=== PATIENT | female | born 1985 | race Caucasian/White ===

== ENCOUNTER 2024-12-27 01:08 | Inpatient (IN) | payer OTHER, SELFPAY ==
[2024-12-27 01:24] VITALS: BP 136/88; PULSE 110; RESP 19; TEMP 36.6; O2SAT 96
--- NOTE | 2024-12-27 01:39 | ED_ITS ---
HPI - Psych General Chief Complaint: Psychiatric Symptoms Stated Complaint: SI Time Seen by Provider: 12/27/24 01:10 Source: patient Mode of arrival: ambulatory Limitations: no limitations History of Present Illness ED Provider: Randa Phoenix NP HPI Narrative: Patient is a 39-year-old female with past medical history of PTSD, anxiety, depression, ADHD, ADD, polysubstance use disorder with 11 month sobriety on methadone following with [facility] in [place] reported dosage of 35 mg last dose today who presents emergency department for evaluation coming from a TSS program. Evidently she has been sitting out in the waiting room for approximately 7 hours has been approached by security a few times she had stated that she was waiting on arrived. Ultimately when they last checked in with her she decided it was time to check in as a patient. She states it was hard for her to ?take the first step?. She admits that she has been having suicidal ideations with a plan but does not indulge what this pain includes. Denies having homicidal ideations. She states that she would like to get into a dual diagnosis program, however she is adamant that she has not used any recreational drugs or alcohol. She offers no physical complaints at this time. Related Data Home Medications ?Medication ?Instructions ?Recorded ?Confirmed acetaminophen 500 mg tablet 1,000 mg PO Q6H PRN Pain 12/27/24 12/27/24 (Acetaminophen Extra Strength) benztropine 0.5 mg tablet 0.5 mg PO BID 12/27/24 12/27/24 clonidine HCl 0.1 mg tablet 0.1 mg PO TID 12/27/24 12/27/24 dextroamphetamine-amphetamine 10 10 mg PO DAILY 12/27/24 12/27/24 mg tablet (Adderall) dextroamphetamine-amphetamine ER 10 mg PO DAILY 12/27/24 12/27/24 10 mg 24hr capsule,extend release (Adderall XR) gabapentin 600 mg tablet 600 mg PO TID 12/27/24 12/27/24 hydroxyzine pamoate 50 mg capsule 50 mg PO TID PRN Anxiety 12/27/24 12/27/24 lamotrigine 150 mg tablet 150 mg PO DAILY 12/27/24 12/27/24 methadone 10 mg/mL oral 135 mg PO DAILY 12/27/24 12/27/24 concentrate (Methadone Intensol) nicotine 21 mg/24 hr daily 21 mg topical DAILY 12/27/24 12/27/24 transdermal patch polyethylene glycol 3350 17 17 g PO DAILY PRN Constipation 12/27/24 12/27/24 gram/dose oral powder prazosin 2 mg capsule 2 mg PO BEDTIME 12/27/24 12/27/24 quetiapine 150 mg tablet 150 mg PO BEDTIME 12/27/24 12/27/24 quetiapine 25 mg tablet 25 mg PO BID PRN Agitation 12/27/24 12/27/24 trazodone 100 mg tablet 100 mg PO BEDTIME PRN Insomnia 12/27/24 12/27/24 venlafaxine 37.5 mg 112.5 mg PO DAILY 12/27/24 12/27/24 tablet,extended release 24 hr albuterol sulfate 90 mcg/actuation 2 puff inhalation QID 12/28/24 12/28/24 aerosol inhaler (Ventolin HFA) ketoconazole 2 % shampoo 1 appl topical DAILY PRN Itching 12/28/24 12/28/24 nicotine (polacrilex) 4 mg gum 4 mg buccal Q1H PRN Smoking 12/28/24 12/28/24 Cessation Allergies Allergy/AdvReac Type Severity Reaction Status Date / Time No Known Allergies Allergy Verified 12/27/24 01:26 Review of Systems 2 Review of Systems: Yes all other systems are reviewed and are negative [facility] Past Medical History Attestation statement: The following information was validated with the patient. Social History Social History Patient Tobacco Use Status: Current everyday Tobacco user Currently Displaying Signs/Symptoms of Drug Intoxication Withdrawal: No Advance Directives: No Advance Directives Information Provided: Yes Do you have thoughts of harming others: None Do you have a plan to hurt others: No Plan Nutrition Risks: No Nutritional Risk Patient : No Physical Exam 2 Vital Signs: Vital Signs: Last Vital Signs Temp 98 F 12/28/24 20:39 Pulse 74 12/28/24 20:39 Resp 20 12/28/24 18:40 BP 114/55 L 12/28/24 20:39 Pulse Ox 96 12/28/24 20:39 O2 Del Method Room Air 12/28/24 20:39 BMI result Body Mass Index 30.0 Appearance: Alert.?Oriented to person, place and time. No acute distress.?Normal affect. Eyes: Pupils equal, round and reactive to light.? ENT: Pharynx normal.?? Neck: Normal inspection.? Neck supple.?? CVS: Heart sounds normal. Normal heart rate and rhythm.? Pulses normal.?? Respiratory: No respiratory distress.? Lung sounds clear to auscultation bilaterally?? Abdomen: Soft and non-tender. Normoactive bowel sounds. Skin: Skin warm and dry.? Normal skin color.? Extremities: No lower extremity edema.? Neuro: Moves all extremities spontaneously. Sensation intact bilaterally. CN II- XII intact. No focal neuro deficits. Ambulates with normal steady gait. Course Course Course Narrative: Time: 07:17 Date: 12/27/24 Provider: Andra Ng, DO Patient in physician observation for psychiatric evaluation.? No acute events reported overnight. No current complaints. VS stable.? Pending CARE team evaluation. UA has WBC but no nitrates and neg bacteria will follow culture. Will continue to monitor. Medications Administered Generic Name Dose Route Start Last Admin Trade Name Freq PRN Reason Stop Dose Admin Albuterol Sulfate 2 puff 12/28/24 20:00 12/28/24 20:44 Albuterol Sulfate 90 Mcg 8 Gm Inhaler INHALE Not Given RQID JULIANNE Amphetamine/Dextroamphetamine 10 mg 12/28/24 09:00 12/28/24 08:47 Dextroamphetamine/Amphetamine Xr 10 Mg Cap.Er.24h PO 10 mg DAILY JULIANNE Administration Amphetamine/Dextroamphetamine 10 mg 12/28/24 09:00 12/28/24 08:47 Amphetamine Mixed Salts 10 Mg Tablet PO 10 mg DAILY JULIANNE Administration Benztropine Mesylate 0.5 mg 12/28/24 09:00 12/28/24 20:39 Benztropine Mesylate 0.5 Mg Tablet PO 0.5 mg BID JULIANNE Administration Cephalexin HCl 500 mg 12/28/24 16:30 12/28/24 20:38 Cephalexin 500 Mg Capsule PO 01/02/25 16:29 500 mg TID JULIANNE Administration Clonidine HCl 0.1 mg 12/28/24 09:00 12/28/24 20:41 Clonidine Hcl 0.1 Mg Tablet PO 0.1 mg TID JULIANNE Administration Gabapentin 600 mg 12/28/24 09:00 12/28/24 20:38 Gabapentin 600 Mg Tablet PO 600 mg TID JULIANNE Administration Hydroxyzine HCl 25 mg 12/28/24 16:35 12/28/24 19:08 Hydroxyzine Hcl 25 Mg Tablet PO 25 mg Q6H PRN Administration mild anxiety Lamotrigine 150 mg 12/28/24 09:00 12/28/24 08:47 Lamotrigine 100 Mg Tablet PO 150 mg DAILY JULIANNE Administration Methadone HCl 135 mg 12/27/24 14:45 12/28/24 08:45 Methadone Hcl 20 Mg/2 Ml Oral.Conc PO 135 mg DAILY JULIANNE Administration Nicotine Polacrilex 2 mg 12/28/24 00:39 12/28/24 09:50 Nicotine Polacrilex 2 Mg Gum BUCCAL 2 mg QID PRN Administration Nicotine Cravings Nicotine Polacrilex 4 mg 12/28/24 18:12 12/28/24 19:08 Nicotine Polacrilex 2 Mg Gum BUCCAL 4 mg Q2H PRN Administration Smoking Cessation Olanzapine 5 mg 12/28/24 16:35 12/28/24 19:08 Olanzapine 5 Mg Tablet PO 5 mg TID PRN Administration agitation Prazosin HCl 2 mg 12/28/24 21:00 12/28/24 20:39 Prazosin Hcl 1 Mg Capsule PO 2 mg BEDTIME JULIANNE Administration Quetiapine Fumarate 25 mg 12/27/24 22:01 12/28/24 09:48 Quetiapine Fumarate 25 Mg Tablet PO 25 mg BID PRN Administration Agitation Quetiapine Fumarate 150 mg 12/28/24 21:00 12/28/24 20:38 Quetiapine Fumarate 50 Mg Tablet PO 150 mg BEDTIME JULIANNE Administration Trazodone HCl 100 mg 12/28/24 21:00 12/28/24 20:38 Trazodone Hcl 100 Mg Tablet PO 100 mg BEDTIME JULIANNE Administration Venlafaxine HCl 112.5 mg 12/28/24 09:00 12/28/24 08:48 Venlafaxine Hcl Er 37.5 Mg Cap.Er.24h PO 112.5 mg DAILY JULIANNE Administration Discontinued Medications Generic Name Dose Route Start Last Admin Trade Name Freq PRN Reason Stop Dose Admin Hydroxyzine HCl 50 mg 12/27/24 21:57 12/28/24 09:48 Hydroxyzine Hcl 50 Mg Tablet PO 50 mg TID PRN Administration Anxiety Nicotine 21 mg 12/28/24 09:00 12/28/24 08:48 Nicotine 21 Mg Patch.Td24 TRANSDERMA 21 mg DAILY JULIANNE Administration Medical Decision Making Medical Decision Making [facility] Narrative: Patient is a 39-year-old female with past medical history of PTSD, anxiety, depression, ADHD, ADD, polysubstance use disorder with 11 month sobriety on methadone following with [facility] in [place] reported dosage of 35 mg last dose today who presents emergency department for evaluation reportedly coming from a TSS program that she checked out of as she wants to be placed in a dual diagnosis program although she is quite adamant that she is not using any recreational drugs or alcohol, she is endorsing suicidal ideations with a plan but does not able to with this plan includes. She reports that she has not seen her psychiatric provider and some time as there are maternity in were based on [place], it is not exactly clear but she may have ran out of some of her medications does not know which ones or may not have taken some of her medications recently. This time she offers no physical complaints and her physical exam is benign. She appears mildly anxious and somewhat tearful at the time of evaluation but is calm and cooperative with staff. Plan to obtain serum labs for medical clearance and refer to care team for disposition planning Differential Diagnosis Differential Diagnoses: The differential diagnosis associated with the presentation includes (See narrative above and below for further detail) Admission/Observation Consideration of admission/observation: Escalation of care including admission/observation considered Patient is being observed in the Emergency Department for depression and suicidal ideations Observation time was started at 12/27/2024 at 01:55.?The patient is currently stable and non-toxic appearing. Observation is being initiated in the Emergency Department to allow time to help differentiate if the patient's depression and suicidal ideation is due to Substance Induced Mood Disorder and Anxiety versus Major Depressive Disorder, Bipolar Coco, Bipolar Depression, and Schizophrenia. The patient will receive frequent psychiatric assessments from the provider as well as from nursing staff. The patient will also be monitored for the need of PRN agitation medications such as Haldol, Ativan, and Benadryl. Consult Healthcare Provider Management of the patient was discussed with: Behavioral Health Provider (CARE team) Lab Data [facility] Lab Attestation statement: I reviewed the patient's lab results. CBC reveals no leukocytosis, no significant anemia, no thrombocytopenia. No electrolyte derangement. No TALIA. Ethyl alcohol level nondetectable 12/27/24 03:07 12/27/24 03:07 Labs: Lab Results 12/27/24 12/27/24 Range/Units 03:07 03:10 WBC 4.8 (4.8-10.8) X10*3/uL RBC 4.26 (4.20-5.50) X10*6/uL Hgb 12.4 (12.0-16.0) g/dl Hct 34.9 L (37.0-47.0) % MCV 81.9 (80.0-98.0) fL MCH 29.1 (27.0-33.0) pg MCHC 35.5 H (31.0-35.0) g/dl RDW 12.6 (11.0-16.0) % Plt Count 206 (160-400) X10*3/uL MPV 9.3 L (9.4-12.3) fL Immature Gran % (Auto) 0.2 (0.0-0.4) % Neut % (Auto) 42.1 L (45-73) % Lymph % (Auto) 45.7 H (20-40) % [place] % (Auto) 8.3 (2-11) % Eos % (Auto) 2.9 (0-4) % Baso % (Auto) 0.8 (0-2) % Lymph # (Auto) 2.2 (1.2-4.9) X10*3/uL [place] # (Auto) 0.4 (0.1-1.2) X10*3/uL Eos # (Auto) 0.1 (0.0-0.4) X10*3/uL Baso # (Auto) 0.0 (0.0-0.2) X10*3/uL Abs Immat Gran (auto) 0.01 (0.00-0.03) X10*3/uL Absolute Neuts (auto) 2.0 (2.0-8.3) x10*3/uL Absolute Nucleated RBC 0.000 (0.0-0.012) X10*3/uL Nucleated RBC % (auto) 0.0 (0.0-0.2) /100WBC Sodium 143 (135-145) mmol/L Potassium 4.0 (3.3-5.1) mmol/L Chloride 105 (96-108) mmol/L Carbon Dioxide 28 (22-29) mmol/L Anion Gap 14 (12-20) BUN 16 (9-16) mg/dL Creatinine 0.83 (0.5-1.4) mg/dL Estim Creat Clear Calc 97.0 Estimated GFR > 60 Random Glucose 110 (60-115) mg/dL Calcium 9.0 (8.4-10.2) mg/dL Total Bilirubin 0.4 (0.0-1.0) mg/dL AST 40 H (5-31) U/L ALT 34 H (0-31) U/L Alkaline Phosphatase 75 (39-117) U/L Total Protein 6.8 (6.5-8.0) g/dL Albumin 4.0 (3.5-5.0) g/dL Urine Color Yellow Urine Appearance Clear Urine pH 6.5 (5.0-9.0) Ur Specific [place] 1.020 (1.005-1.025) Urine Protein Negative (Neg-Trace) mg/dL Urine Glucose (UA) Negative (Negative) mg/dL Urine Ketones Negative (Negative) mg/dL Urine Blood Negative (Negative) Urine Nitrite Negative (Negative) Ur Leukocyte Esterase Large (3+) H (Negative) Urine RBC 0-2 (0-2) /HPF Urine WBC >50 H (0-5) /HPF Ur Squamous Epith Cells 6-10 (0-2) /HPF Urine Bacteria None Seen (None Seen) Hyaline Casts 0-2 (0-2) /LPF Urine Test NEGATIVE (NEGATIVE) Urine Opiates Screen Not Detected (Not Detect) Ur Buprenorphine Scrn Not Detected (Not Detect) ng/mL Ur Oxycodone Screen Not Detected (Not Detect) ng/mL Urine Methadone Screen Positive H (Not Detect) ng/mL Urine Fentanyl Screen Not Detected (Not Detect) Ur Barbiturates Screen Not Detected (Not Detect) Ur Phencyclidine Scrn Not Detected (Not Detect) Ur Amphetamines Screen POSITIVE H (Not Detect) U Benzodiazepines Scrn Not Detected (Not Detect) Urine Cocaine Screen Not Detected (Not Detect) U Marijuana (THC) Screen Not Detected (Not Detect) Ethyl Alcohol < 10 mg/dL Chronic Conditions Patient?s care impacted by: Other (See narrative above) Social Determinants Patient?s care significantly limited by Social Determinants of Health including: Inadequate housing and Alcoholism and drug addiction in family Discharge Plan Discharge Clinical Impression: Suicidal ideation Patient Disposition: Admitted As Inpatient Interventions: Admission Worksheet (ED) Last Done: 12/28/24 18:31 Discharge Date/Time: 12/28/24 18:31
--- NOTE | 2024-12-27 01:52 | PC.NURSE ---
This RN & LizettRESOURCE CONSERVATION MANAGER to bedside speaking with patient. Patient arrives from waiting room. Patient was in waiting room for 7 hours, but never checked in. Security & other staff had asked this patient to leave the waiting room, and then reported SI and checked in. States that she is in a TCC program and is '11 months sober'. Denies relapse of any drugs or alcohol. Admits to past use of cocaine, crack, & dope. States that she has run out of all of her medications. Pt is requesting to go into a dual diagnosis program, but that waitlists are 3+ months long. Continues to deny current drug/ETOH use. Reports getting Methadone 135mg daily at [facility]. Large amount of belongings (rolled up mattress, makeup, cell phone, vape, chargers, cigarettes and medications) were with the patient. Belongings were placed into the washer/dryer closed in the pod for storage. Medications given to this RN to review/count.
[2024-12-27 03:12] LABS: MANUAL DIFF FLAG NO
[2024-12-27 03:13] LABS: Basophils Percent Auto 0.8 % (0-2); Eosinophils Absolute Auto 0.1 X10*3/uL (0.0-0.4); Eosinophils Percent Auto 2.9 % (0-4); Hematocrit 34.9 % (37.0-47.0); Hemoglobin 12.4 g/dl (12.0-16.0); Imm Gran Abs Auto 0.01 X10*3/uL (0.00-0.03); Imm Gran Pct Auto 0.2 % (0.0-0.4); Lymphocytes Absolute Auto 2.2 X10*3/uL (1.2-4.9); Lymphocytes Percent Auto 45.7 % (20-40); Mean Corpuscular HGB Conc 35.5 g/dl (31.0-35.0); Mean Corpuscular Hemoglobin 29.1 pg (27.0-33.0); Mean Corpuscular Volume 81.9 fL (80.0-98.0); Mean Platelet Volume 9.3 fL (9.4-12.3); Monocytes Absolute Auto 0.4 X10*3/uL (0.1-1.2); Monocytes Percent Auto 8.3 % (2-11); Neutrophils Percent Auto 42.1 % (45-73); Platelet Count 206 X10*3/uL (160-400); Red Blood Count 4.26 X10*6/uL (4.20-5.50); Red Cell Distribution Width 12.6 % (11.0-16.0); White Blood Count 4.8 X10*3/uL (4.8-10.8)
--- NOTE | 2024-12-27 03:13 | PC.NURSE ---
Belongings moved to [facility] due to large amount of belongings. Area secured by security staff. Controlled medications counted by this RN, inventory completed, and co-signed by Brenda Salinas RN. 2 envelopes to be sent to pharmacy department upon department opening at 7am. Non-controlled medications inventory also completed, however, per policy, non-controlled medications added to patient's belongings in [facility]. All paperwork also reviewed/signed by patient. RN to RN report given to Suzan.
[2024-12-27 03:16] LABS: UPreg QC Valid YES; Urine Pregnancy NEGATIVE (NEGATIVE)
[2024-12-27 03:19] LABS: Appearance Urine Clear; Color Urine Yellow; Glucose Urine UA Negative (Negative); Leukocyte Esterase Urine Large (3+) (Negative); Nitrite Urine Negative (Negative); PH 6.5 (5.0-9.0); UMIC TRIGGER UACC YES; Urine Blood Negative (Negative); Urine Ketones Negative (Negative); Urine Protein Negative (Neg-Trace)
[2024-12-27 03:25] LABS: Bacteria Urine None Seen (None Seen); Hyaline Casts Urine 0-2 /LPF (0-2); RBC Urine 0-2 /HPF (0-2); UACC Culture Trigger YES; WBC Urine >50 /HPF (0-5)
--- NOTE | 2024-12-27 03:32 | PC.NURSE ---
assumed care of pt at 0300. PT appears to be sleeping. Respirations even and unlabored. sitter at bedside. plan of care ongoing
[2024-12-27 03:40] LABS: Alanine Aminotransferase 34 U/L (0-31); Alkaline Phosphatase 75 U/L (39-117); Anion Gap 14 (12-20); Aspartate Amino Transferase 40 U/L (5-31); Bilirubin Total 0.4 mg/dL (0.0-1.0); Blood Urea Nitrogen 16 mg/dL (9-16); Carbon Dioxide 28 mmol/L (22-29); Chloride 105 mmol/L (96-108); Estimated Glomerular Filt Rate > 60; Ethanol < 10 mg/dL; Glucose Random 110 mg/dL (60-115); Sodium 143 mmol/L (135-145); Total Protein 6.8 g/dL (6.5-8.0)
[2024-12-27 04:09] LABS: Amphetamine Screen Urine POSITIVE (Not Detect); Barbiturates, Urine Not Detected (Not Detect); Benzodiazepines Screen Urine Not Detected (Not Detect); Buprenorphine Scr Not Detected (Not Detect); Cannabinoid Screen Urine Not Detected (Not Detect); Cocaine Screen Urine Not Detected (Not Detect); Fentanyl, urine Not Detected (Not Detect); Methadone Screen, Urine Positive (Not Detect); Opiate Screen Urine Not Detected (Not Detect); Oxycodone Screen Urine Not Detected (Not Detect); Phencyclidine Screen Urine Not Detected (Not Detect)
[2024-12-27 06:00] VITALS: RESP 14
--- NOTE | 2024-12-27 06:40 | PC.NURSE ---
patient just got transferred to ED POD from main ED. No behavior and safety issues. Patient has bubble packet however med rec was not completed, will continue to monitor
--- NOTE | 2024-12-27 08:00 | PC.NURSE ---
Assumed care of patient at 0645, patient appears to be sleeping, respiraitons even and unlabored, no apparent distress noted. Continue plan of care for CARE team cedric
--- NOTE | 2024-12-27 14:50 | HE.PHANOTE ---
Methadone verified [facility] 135 mg 12/27/24
[2024-12-27 14:53] VITALS: BP 124/87; PULSE 84; RESP 14; TEMP 36.5; O2SAT 100
[2024-12-27] MEDS: methADONE HCl 20 MG/2 ML ORAL.CONC 135 MG PO (15:12)
--- NOTE | 2024-12-27 15:34 | PC.NURSE ---
This RN spoke with [facility] staff member Amanda who states she will be faxing pts med list over
--- NOTE | 2024-12-27 21:38 | PC.NURSE ---
Addendum entered by Philip Westbrook [facility] 12/27/24 22:35: med rec reviewed Original Note: excepting entry for IR amphetamine salts 10mg daily which i had difficulty entering, med rec appears completed which was reviewed w patient and faxed from [facility] program, reviewed missed entry w [place] Marie
--- NOTE | 2024-12-28 | ECG_ITS ---
Test Reason : CHECK QTC Blood Pressure : */* mmHG Vent. Rate : 84 BPM Atrial Rate : 84 BPM P-R Int : 150 ms QRS Dur : 70 ms QT Int : 396 ms P-R-T Axes : 76 34 50 degrees QTcB Int : 467 ms Normal sinus rhythm Normal ECG No previous ECGs available Referred By: Randa Phoenix Electronically Signed By: PEARL HINKLE
[2024-12-28 00:41] VITALS: BP 111/70; PULSE 82; RESP 16; TEMP 36.6; O2SAT 99
[2024-12-28 00:42] VITALS: BP 111/70
[2024-12-28] MEDS: Prazosin HCL 1 MG CAPSULE 2 MG PO ×2 (00:42→20:39)
[2024-12-28] MEDS: cloNIDine HCL 0.1 MG TABLET PO ×4 (00:42→20:41)
[2024-12-28] MEDS: QUEtiapine Fumarate 50 MG TABLET 150 MG PO ×2 (00:43→20:38)
[2024-12-28] MEDS: traZODone HCL 100 MG TABLET PO ×2 (00:43→20:38)
[2024-12-28] MEDS: Nicotine Polacrilex 2 MG GUM BUCCAL ×2 (00:48→09:50)
[2024-12-28 06:06] VITALS: RESP 16
--- NOTE | 2024-12-28 07:56 | PC.NURSE ---
Assumed care of patient at 0645, patient appears to be in no apparent distress this am, resting in bed, ate breakfast, offering no complaints to this RN. Continue plan of care for IPLOC
[2024-12-28] MEDS: methADONE HCl 20 MG/2 ML ORAL.CONC 135 MG PO (08:45)
[2024-12-28] MEDS: lamoTRIgine 100 MG TABLET 150 MG PO (08:47)
[2024-12-28] MEDS: Amphetamine Mixed Salts 10 MG TABLET PO (08:47)
[2024-12-28] MEDS: Gabapentin 600 MG TABLET PO ×3 (08:47→20:38)
[2024-12-28] MEDS: Dextroamphetamine/Amphetamine XR 10 MG CAP.ER.24H PO (08:47)
[2024-12-28] MEDS: Venlafaxine HCl ER 37.5 MG CAP.ER.24H 112.5 MG PO (08:48)
[2024-12-28] MEDS: Benztropine Mesylate 0.5 MG TABLET PO ×2 (08:48→20:39)
[2024-12-28] MEDS: Nicotine 21 MG PATCH.TD24 TRANSDERMA (08:48)
[2024-12-28] MEDS: hydrOXYzine HCL 50 MG TABLET PO (09:48)
[2024-12-28] MEDS: QUEtiapine Fumarate 25 MG TABLET PO (09:48)
--- NOTE | 2024-12-28 13:41 | PHA.MEDREC ---
Addendum entered by Yuri Ellis RPh 12/28/24 13:52: MED REC CHECKED BY [facility] Original Note: Pharmacy Consult ? Medication Reconciliation Pharmacy has reviewed the medication reconciliation done by nursing. Utilized list from [facility] to confirm med list. Venlafaxine Er 37.5 mg and 75 mg. Confirmed with nurse that patients total daily dose is 112.5 mg daily.
[2024-12-28 14:20] VITALS: BP 100/67; PULSE 78; RESP 16; TEMP 36.4; O2SAT 97
[2024-12-28] MEDS: cephALEXin 500 MG CAPSULE PO ×2 (17:44→20:38)
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
[2024-12-28 18:40] VITALS: BP 132/82; PULSE 102; RESP 20; TEMP 36.7; O2SAT 97
[2024-12-28] MEDS: OLANZapine 5 MG TABLET PO (19:08)
[2024-12-28] MEDS: hydrOXYzine HCL 25 MG TABLET PO (19:08)
[2024-12-28] MEDS: Nicotine Polacrilex 2 MG GUM 4 MG BUCCAL (19:08)
[2024-12-28 19:52] VITALS: BMI 31.5
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
[2024-12-28 20:39] VITALS: BP 114/55; PULSE 74; TEMP 36.6; O2SAT 96
[2024-12-29 08:00] VITALS: BP 94/54; PULSE 68; RESP 17; TEMP 36.8; O2SAT 95
[2024-12-29] MEDS: methADONE HCl 20 MG/2 ML ORAL.CONC 135 MG PO (08:16)
[2024-12-29] MEDS: lamoTRIgine 100 MG TABLET 150 MG PO (08:53)
[2024-12-29] MEDS: Venlafaxine HCl ER 37.5 MG CAP.ER.24H 112.5 MG PO (08:54)
[2024-12-29] MEDS: Gabapentin 600 MG TABLET PO ×3 (08:54→21:04)
[2024-12-29] MEDS: cephALEXin 500 MG CAPSULE PO ×3 (08:55→21:04)
[2024-12-29] MEDS: Dextroamphetamine/Amphetamine XR 10 MG CAP.ER.24H PO (08:55)
[2024-12-29] MEDS: Amphetamine Mixed Salts 10 MG TABLET PO (08:56)
[2024-12-29] MEDS: Nicotine Polacrilex 2 MG GUM 4 MG BUCCAL ×3 (08:56→21:07)
[2024-12-29] MEDS: Benztropine Mesylate 0.5 MG TABLET PO ×2 (08:56→21:04)
[2024-12-29] MEDS: Nicotine 21 MG PATCH.TD24 TRANSDERMA (08:57)
[2024-12-29] MEDS: hydrOXYzine HCL 25 MG TABLET PO (09:01)
[2024-12-29] MEDS: QUEtiapine Fumarate 25 MG TABLET PO ×2 (09:01→17:01)
[2024-12-29 09:03] VITALS: BP 116/71
[2024-12-29] MEDS: Albuterol Sulfate 90 MCG 8 GM INHALER 2 PUFF INHALE ×2 (09:03→15:32)
[2024-12-29] MEDS: cloNIDine HCL 0.1 MG TABLET PO ×3 (09:03→21:04)
[2024-12-29 09:34] LABS: Estimated Average Glucose 108 mg/dL; Hemoglobin A1C 134.0729 umol/L; Hemoglobin A1c % 5.4 % (<6.0); Total Hemoglobin (HGBA1C) 3743.2029 umol/L
[2024-12-29 09:43] LABS: Alanine Aminotransferase 40 U/L (0-31); Albumin Level 4.3 g/dL (3.5-5.0); Alkaline Phosphatase 80 U/L (39-117); Anion Gap 11 (12-20); Aspartate Amino Transferase 39 U/L (5-31); Bilirubin Total 0.4 mg/dL (0.0-1.0); Blood Urea Nitrogen 18 mg/dL (9-16); Calcium 9.5 mg/dL (8.4-10.2); Carbon Dioxide 31 mmol/L (22-29); Chloride 103 mmol/L (96-108); Cholesterol 176 mg/dL (<200); Creatinine Clr Calc Pharmacy 88.7; Estimated Glomerular Filt Rate > 60; Glucose Random 104 mg/dL (60-115); HDL Cholesterol 52 mg/dL (>40); LDL Cholesterol Calculated 98 mg/dL (<100); Potassium 4.2 mmol/L (3.3-5.1); Sodium 141 mmol/L (135-145); Total Protein 7.8 g/dL (6.5-8.0); Triglycerides 130 mg/dL (<150)
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
[2024-12-29 15:32] VITALS: BP 133/71
[2024-12-29] MEDS: HaloperidoL 5 MG TABLET PO ×2 (17:01→21:06)
[2024-12-29 19:49] VITALS: BP 113/54; PULSE 89; RESP 16; TEMP 36.8; O2SAT 99
[2024-12-29] MEDS: QUEtiapine Fumarate 50 MG TABLET 150 MG PO (21:04)
[2024-12-29] MEDS: traZODone HCL 100 MG TABLET PO (21:04)
[2024-12-29] MEDS: Prazosin HCL 1 MG CAPSULE 2 MG PO (21:04)
[2024-12-30] MEDS: methADONE HCl 20 MG/2 ML ORAL.CONC 135 MG PO (07:47)
[2024-12-30 08:00] VITALS: BP 97/65; PULSE 90; RESP 16; TEMP 36.6; O2SAT 98
--- NOTE | 2024-12-30 08:32 | HO.ECTCONS_ITS ---
History of Present Illness Data of Consult Service Date: 12/30/24 Primary Care Provider: Unknown Physician HPI Reason for consult: ECT Risk Stratification Pt is a 39-year-old female with a PMH significant for ADHD, polysubstance use disorder on methadone sober 11 months, PTSD, anxiety, and depression who was admitted to Psychiatric unit for increasing depression with SI with plan to slit her wrists. Hospitalist consult for ECT risk stratification. Pt has been staying at [facility] in [place] and was scheduled to have an ECT information session sometime next week. Pt reports experienced a seizure episode 10-15 years ago while detoxing. No formal seizure disorder diagnosis, and likely secondary to detox seen/medication induced. Pt has undergone surgical procedures in the past without any problems with anesthesia. Denies hx of cerebral hemorrhage or stroke, CAD, space occupying intracranial lesion, or TBI. No known hx of bleeding disorders or and otherwise unstable vascular aneurysm, severe pulmonary conditions. Pt reports has a rescue inhaler that was originally prescribed when she had pneumonia, and since then prescription has been renewed. Currently pt denies any acute medical complaints. No chest pain/pressure, or palpitations. Denies fever, chills, nausea, vomiting, abdominal pain. Denies shortness or breath or difficulty breathing. No headache or acute vision changes. Vitals reviewed, stable and WNL. Labs from yesterday reviewed, overall grossly unremarkable. EKG from yesterday reviewed, showing normal sinus rhythm with QTc 467. Review of Systems 2 Review of Systems: Pt has no acute medical complaints at this time. [facility] Social History Household Members: None Housing: Homeless Do you presently have visiting nurse or other home services: No Patient Tobacco Use Status: Refuse Tobacco use screen Currently Displaying Signs/Symptoms of Drug Intoxication Withdrawal: No Advance Directives: No Advance Directives Information Provided: Yes Do you have thoughts of harming others: None Do you have a plan to hurt others: No Plan Nutrition Risks: No Nutritional Risk Patient : No : No Sexual orientation: Unable to collect Meds Allergies Allergy/AdvReac Type Severity Reaction Status Date / Time No Known Allergies Allergy Verified 12/27/24 01:26 Active Medications: Current Medications Al Hydroxide/Mg Hydroxide (Magnesium Hydrox/Alum Hydrox 30 Ml Oral.Susp) 30 ml PO Q6H PRN PRN Reason: Heartburn/Nausea Albuterol Sulfate (Albuterol Sulfate 90 Mcg 8 Gm Inhaler) 2 puff INHALE RQID [facility] Last Admin: 12/29/24 21:07 Dose: Not Given Amphetamine/Dextroamphetamine (Dextroamphetamine/Amphetamine Xr 10 Mg Cap.Er.24h) 10 mg PO DAILY [facility] Last Admin: 12/29/24 08:55 Dose: 10 mg Amphetamine/Dextroamphetamine (Amphetamine Mixed Salts 10 Mg Tablet) 10 mg PO DAILY [facility] Last Admin: 12/29/24 08:56 Dose: 10 mg Benztropine Mesylate (Benztropine Mesylate 0.5 Mg Tablet) 0.5 mg PO BID [facility] Last Admin: 12/29/24 21:04 Dose: 0.5 mg Cephalexin HCl (Cephalexin 500 Mg Capsule) 500 mg PO TID [facility] Stop: 01/02/25 16:29 Last Admin: 12/29/24 21:04 Dose: 500 mg Clonidine HCl (Clonidine Hcl 0.1 Mg Tablet) 0.1 mg PO TID [facility] Last Admin: 12/29/24 21:04 Dose: 0.1 mg Gabapentin (Gabapentin 600 Mg Tablet) 600 mg PO TID [facility] Last Admin: 12/29/24 21:04 Dose: 600 mg Haloperidol (Haloperidol 5 Mg Tablet) 5 mg PO Q4H PRN PRN Reason: severe anxiety Last Admin: 12/29/24 21:06 Dose: 5 mg Hydroxyzine HCl (Hydroxyzine Hcl 25 Mg Tablet) 25 mg PO Q6H PRN PRN Reason: mild anxiety Last Admin: 12/29/24 09:01 Dose: 25 mg Lamotrigine (Lamotrigine 100 Mg Tablet) 150 mg PO DAILY [facility] Last Admin: 12/29/24 08:53 Dose: 150 mg Magnesium Hydroxide (Milk Of Magnesia 30 Ml Oral.Susp) 30 ml PO DAILY PRN PRN Reason: Constipation Methadone HCl (Methadone Hcl 20 Mg/2 Ml Oral.Conc) 135 mg PO DAILY [facility] Last Admin: 12/30/24 07:47 Dose: 135 mg Nicotine (Nicotine 21 Mg Patch.Td24) 21 mg TRANSDERMA DAILY PRN PRN Reason: smoking cessation Last Admin: 12/29/24 08:57 Dose: 21 mg Nicotine Polacrilex (Nicotine Polacrilex 2 Mg Gum) 2 mg BUCCAL QID PRN PRN Reason: Nicotine Cravings Last Admin: 12/28/24 09:50 Dose: 2 mg Nicotine Polacrilex (Nicotine Polacrilex 2 Mg Gum) 4 mg BUCCAL Q2H PRN PRN Reason: Smoking Cessation Last Admin: 12/29/24 21:07 Dose: 4 mg Polyethylene Glycol (Polyethylene Glycol 3350 17 Gm Powd.Pack) 17 gm PO DAILY PRN PRN Reason: Constipation Prazosin HCl (Prazosin Hcl 1 Mg Capsule) 2 mg PO BEDTIME [facility] Last Admin: 12/29/24 21:04 Dose: 2 mg Quetiapine Fumarate (Quetiapine Fumarate 25 Mg Tablet) 25 mg PO BID PRN PRN Reason: Agitation Last Admin: 12/29/24 17:01 Dose: 25 mg Quetiapine Fumarate (Quetiapine Fumarate 50 Mg Tablet) 150 mg PO BEDTIME [facility] Last Admin: 12/29/24 21:04 Dose: 150 mg Trazodone HCl (Trazodone Hcl 100 Mg Tablet) 100 mg PO BEDTIME [facility] Last Admin: 12/29/24 21:04 Dose: 100 mg Trazodone HCl (Trazodone Hcl 50 Mg Tablet) 50 mg PO BEDTIME MRX1 PRN PRN Reason: Insomnia Venlafaxine HCl (Venlafaxine Hcl Er 37.5 Mg Cap.Er.24h) 112.5 mg PO DAILY [facility] Last Admin: 12/29/24 08:54 Dose: 112.5 mg Home Medications ?Medication ?Instructions ?Recorded ?Confirmed ?Last Taken ?Type acetaminophen 500 mg tablet 1,000 mg PO Q6H PRN Pain 12/27/24 12/27/24 Unknown History (Acetaminophen Extra Strength) benztropine 0.5 mg tablet 0.5 mg PO BID 12/27/24 12/27/24 Unknown History clonidine HCl 0.1 mg tablet 0.1 mg PO TID 12/27/24 12/27/24 Unknown History dextroamphetamine-amphetamine 10 10 mg PO DAILY 12/27/24 12/27/24 Unknown History mg tablet (Adderall) dextroamphetamine-amphetamine ER 10 mg PO DAILY 12/27/24 12/27/24 Unknown History 10 mg 24hr capsule,extend release (Adderall XR) gabapentin 600 mg tablet 600 mg PO TID 12/27/24 12/27/24 Unknown History hydroxyzine pamoate 50 mg capsule 50 mg PO TID PRN Anxiety 12/27/24 12/27/24 Unknown History lamotrigine 150 mg tablet 150 mg PO DAILY 12/27/24 12/27/24 Unknown History methadone 10 mg/mL oral 135 mg PO DAILY 12/27/24 12/27/24 12/26/24 History concentrate (Methadone Intensol) nicotine 21 mg/24 hr daily 21 mg topical DAILY 12/27/24 12/27/24 Unknown History transdermal patch polyethylene glycol 3350 17 17 g PO DAILY PRN Constipation 12/27/24 12/27/24 Unknown History gram/dose oral powder prazosin 2 mg capsule 2 mg PO BEDTIME 12/27/24 12/27/24 Unknown History quetiapine 150 mg tablet 150 mg PO BEDTIME 12/27/24 12/27/24 Unknown History quetiapine 25 mg tablet 25 mg PO BID PRN Agitation 12/27/24 12/27/24 Unknown History trazodone 100 mg tablet 100 mg PO BEDTIME PRN Insomnia 12/27/24 12/27/24 Unknown History venlafaxine 37.5 mg 112.5 mg PO DAILY 12/27/24 12/27/24 Unknown History tablet,extended release 24 hr albuterol sulfate 90 mcg/actuation 2 puff inhalation QID 12/28/24 12/28/24 Unknown History aerosol inhaler (Ventolin HFA) ketoconazole 2 % shampoo 1 appl topical DAILY PRN Itching 12/28/24 12/28/24 Unknown History nicotine (polacrilex) 4 mg gum 4 mg buccal Q1H PRN Smoking 12/28/24 12/28/24 11/11/24 History Cessation Physical Exam 2 Vital Signs and Narrative: Vital Signs: Last Vital Signs Temp 98.3 F 12/29/24 19:49 Pulse 89 12/29/24 19:49 Resp 16 12/29/24 19:49 BP 113/54 L 12/29/24 19:49 Pulse Ox 99 12/29/24 19:49 O2 Del Method Room Air 12/29/24 19:49 BMI result Body Mass Index 31.5 General: AOx3, no acute distress Resp: CTA bilaterally CVS: S1, S2, RRR GI: +BS, NT, no distention Skin: Warm, dry Neuro: Cranial nerves II-XII grossly intact bilaterally. Motor grossly intact bilaterally Extremities: No edema Psych: Calm, cooperative Results Labs 12/27/24 03:07 12/29/24 08:33 Labs: Laboratory Results - last 24 hr 12/29/24 08:33 Anion Gap 11 L Estim Creat Clear Calc 88.7 Estimated GFR > 60 Random Glucose 104 Estimat Average Glucose 108 Hemoglobin A1c % 5.4 Calcium 9.5 Total Bilirubin 0.4 AST 39 H ALT 40 H Alkaline Phosphatase 80 Total Protein 7.8 Albumin 4.3 Triglycerides 130 Cholesterol 176 LDL Cholesterol, Calc 98 HDL Cholesterol 52 TSH 1.60 Assessment and Plan (1) Pre-op evaluation: Status: Acute Plan Pt is a 39-year-old female with a PMH significant for ADHD, polysubstance use disorder on methadone sober 11 months, PTSD, anxiety, and depression who was admitted to [facility] for increasing depression with SI with plan to slit her wrists. Hospitalist consult for ECT risk stratification. ECT risk stratification Patient without previous problems with anesthesia RCRI 0 points, no further cardiac workup or treatment indicated at this time EKG showing QTc WNL, no evidence of ischemic changes Hx of seizure x10-15 years ago while in detox, no formal seizure disorder diagnosis Based on stated PMH, HPI, and physical exam, there are no apparent medical contraindications to the planned procedure Hx of seizure Continue lamotrigine UTI Continue cephalexin Polysubstance use disorder Continue methadone Nicotine dependence Continue NRT Thank you for us to participate in the care of this pt. Will sign off for now. Please re-consult if any acute issue or need arises.
[2024-12-30 08:53] VITALS: BP 97/65
[2024-12-30] MEDS: Dextroamphetamine/Amphetamine XR 10 MG CAP.ER.24H PO (08:53)
[2024-12-30] MEDS: lamoTRIgine 100 MG TABLET 150 MG PO (08:53)
[2024-12-30] MEDS: Amphetamine Mixed Salts 10 MG TABLET PO (08:53)
[2024-12-30] MEDS: cloNIDine HCL 0.1 MG TABLET PO ×3 (08:53→21:05)
[2024-12-30] MEDS: cephALEXin 500 MG CAPSULE PO ×3 (08:53→21:05)
[2024-12-30] MEDS: Gabapentin 600 MG TABLET PO ×3 (08:53→21:06)
[2024-12-30] MEDS: Venlafaxine HCl ER 37.5 MG CAP.ER.24H 112.5 MG PO (08:53)
[2024-12-30] MEDS: Benztropine Mesylate 0.5 MG TABLET PO ×2 (08:54→21:06)
[2024-12-30] MEDS: HaloperidoL 5 MG TABLET PO ×3 (09:05→21:05)
[2024-12-30] MEDS: hydrOXYzine HCL 25 MG TABLET PO ×2 (09:05→21:05)
[2024-12-30] MEDS: Nicotine 21 MG PATCH.TD24 TRANSDERMA (09:05)
[2024-12-30] MEDS: QUEtiapine Fumarate 25 MG TABLET PO (09:05)
[2024-12-30] MEDS: Nicotine Polacrilex 2 MG GUM BUCCAL ×2 (09:05→13:34)
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
[2024-12-30 17:07] VITALS: BP 106/66
[2024-12-30 20:00] VITALS: BP 98/53; PULSE 72; RESP 16; TEMP 36.4; O2SAT 95
[2024-12-30] MEDS: QUEtiapine Fumarate 50 MG TABLET 150 MG PO (21:05)
[2024-12-30] MEDS: Prazosin HCL 1 MG CAPSULE 2 MG PO (21:06)
[2024-12-30] MEDS: traZODone HCL 100 MG TABLET PO (21:06)
[2024-12-31 07:00] VITALS: BMI 32.1
[2024-12-31] MEDS: methADONE HCl 20 MG/2 ML ORAL.CONC 135 MG PO (07:54)
[2024-12-31 08:00] VITALS: BP 101/60; PULSE 98; RESP 16; TEMP 36.7; O2SAT 99
[2024-12-31] MEDS: Nicotine 21 MG PATCH.TD24 TRANSDERMA (09:13)
[2024-12-31] MEDS: Amphetamine Mixed Salts 10 MG TABLET PO (09:13)
[2024-12-31] MEDS: lamoTRIgine 100 MG TABLET 150 MG PO (09:14)
[2024-12-31] MEDS: Gabapentin 600 MG TABLET PO ×3 (09:14→21:05)
[2024-12-31] MEDS: Dextroamphetamine/Amphetamine XR 10 MG CAP.ER.24H PO (09:14)
[2024-12-31] MEDS: cephALEXin 500 MG CAPSULE PO ×3 (09:14→21:04)
[2024-12-31] MEDS: Nicotine Polacrilex 2 MG GUM BUCCAL ×2 (09:14→21:07)
[2024-12-31] MEDS: cloNIDine HCL 0.1 MG TABLET PO ×3 (09:14→21:04)
[2024-12-31] MEDS: Benztropine Mesylate 0.5 MG TABLET PO ×2 (09:14→21:04)
[2024-12-31] MEDS: Venlafaxine HCl ER 37.5 MG CAP.ER.24H 112.5 MG PO (09:17)
[2024-12-31] MEDS: Nicotine Polacrilex 2 MG GUM 4 MG BUCCAL ×2 (09:18→14:05)
--- NOTE | 2024-12-31 09:22 | P.PNPSI_ITS ---
Subjective Subjective Date of Service: 12/31/24 Reason For Visit: psychosis Subjective Notes: Conditional Voluntary Interim History: Reports feeling improved, yet anxiety is evident Anxiety is somewhat decreased this afternoon, pt is seen more in milieu today. Self esteem is low. We discussed how hard she has worked for sobriety. Informed she may return to [facility] and is pleased with this. Denies SI,HI,AH,VH Medication Compliance: Yes Side effects from medications: No Attending Groups: Intermittent Review of Systems Acute medical concerns: No Review of Systems Review of Systems denies Mental Status Exam Mental Status Exam Patient Appearance: Appropriate Patient Orientation: Person, Place, Time and Situation Level of Consciousness: Alert Patient Behavior: Appropriate, Talkative and Good Eye Contact Mood Description: Withdrawn and Anxious Affect Description: Withdrawn and Anxious Patient Cognition Impaired: No Ability to Follow Directions: Good Speech Pattern: Spontaneous Speech Memory Description: Intact Hallucinations: None Delusions: Not Present Thought Process: Rumination Thought Content: positive for Perseveration Depressive Symptoms: Increased Anxiety and Thoughts of /Suicide (denies) Judgement: Good Diagnostics Vital Signs (24Hr): Vital Signs - 24 hr 12/30/24 17:07 12/30/24 20:00 Temperature 97.6 F Pulse Rate 72 Respiratory Rate 16 Blood Pressure 106/66 98/53 L Pulse Oximetry 95 Oxygen Delivery Method Room Air BMI result Body Mass Index 31.5 Labs 12/27/24 03:07 12/29/24 08:33 Labs: Laboratory Results - last 48 hr 12/29/24 08:33 Sodium 141 Potassium 4.2 Chloride 103 Carbon Dioxide 31 H Anion Gap 11 L BUN 18 H Creatinine 0.93 Estim Creat Clear Calc 88.7 Estimated GFR > 60 Random Glucose 104 Estimat Average Glucose 108 Hemoglobin A1c % 5.4 Calcium 9.5 Total Bilirubin 0.4 AST 39 H ALT 40 H Alkaline Phosphatase 80 Total Protein 7.8 Albumin 4.3 Triglycerides 130 Cholesterol 176 LDL Cholesterol, Calc 98 HDL Cholesterol 52 TSH 1.60 Medications Medications Current Medications Al Hydroxide/Mg Hydroxide (Magnesium Hydrox/Alum Hydrox 30 Ml Oral.Susp) 30 ml PO Q6H PRN PRN Reason: Heartburn/Nausea Albuterol Sulfate (Albuterol Sulfate 90 Mcg 8 Gm Inhaler) 2 puff INHALE RQID [facility] Last Admin: 12/30/24 21:07 Dose: Not Given Amphetamine/Dextroamphetamine (Dextroamphetamine/Amphetamine Xr 10 Mg Cap.Er.24h) 10 mg PO DAILY [facility] Last Admin: 12/30/24 08:53 Dose: 10 mg Amphetamine/Dextroamphetamine (Amphetamine Mixed Salts 10 Mg Tablet) 10 mg PO DAILY [facility] Last Admin: 12/30/24 08:53 Dose: 10 mg Benztropine Mesylate (Benztropine Mesylate 0.5 Mg Tablet) 0.5 mg PO BID [facility] Last Admin: 12/30/24 21:06 Dose: 0.5 mg Cephalexin HCl (Cephalexin 500 Mg Capsule) 500 mg PO TID [facility] Stop: 01/02/25 16:29 Last Admin: 12/30/24 21:05 Dose: 500 mg Clonidine HCl (Clonidine Hcl 0.1 Mg Tablet) 0.1 mg PO TID [facility] Last Admin: 12/30/24 21:05 Dose: 0.1 mg Gabapentin (Gabapentin 600 Mg Tablet) 600 mg PO TID [facility] Last Admin: 12/30/24 21:06 Dose: 600 mg Haloperidol (Haloperidol 5 Mg Tablet) 5 mg PO Q4H PRN PRN Reason: severe anxiety Last Admin: 12/30/24 21:05 Dose: 5 mg Hydroxyzine HCl (Hydroxyzine Hcl 25 Mg Tablet) 25 mg PO Q6H PRN PRN Reason: mild anxiety Last Admin: 12/30/24 21:05 Dose: 25 mg Lamotrigine (Lamotrigine 100 Mg Tablet) 150 mg PO DAILY [facility] Last Admin: 12/30/24 08:53 Dose: 150 mg Magnesium Hydroxide (Milk Of Magnesia 30 Ml Oral.Susp) 30 ml PO DAILY PRN PRN Reason: Constipation Methadone HCl (Methadone Hcl 20 Mg/2 Ml Oral.Conc) 135 mg PO DAILY [facility] Last Admin: 12/31/24 07:54 Dose: 135 mg Nicotine (Nicotine 21 Mg Patch.Td24) 21 mg TRANSDERMA DAILY PRN PRN Reason: smoking cessation Last Admin: 12/30/24 09:05 Dose: 21 mg Nicotine Polacrilex (Nicotine Polacrilex 2 Mg Gum) 2 mg BUCCAL QID PRN PRN Reason: Nicotine Cravings Last Admin: 12/30/24 13:34 Dose: 2 mg Nicotine Polacrilex (Nicotine Polacrilex 2 Mg Gum) 4 mg BUCCAL Q2H PRN PRN Reason: Smoking Cessation Last Admin: 06/03/25 21:07 Dose: 4 mg Polyethylene Glycol (Polyethylene Glycol 3350 17 Gm Powd.Pack) 17 gm PO DAILY PRN PRN Reason: Constipation Prazosin HCl (Prazosin Hcl 1 Mg Capsule) 2 mg PO BEDTIME [facility] Last Admin: 12/30/24 21:06 Dose: 2 mg Quetiapine Fumarate (Quetiapine Fumarate 25 Mg Tablet) 25 mg PO BID PRN PRN Reason: Agitation Last Admin: 12/30/24 09:05 Dose: 25 mg Quetiapine Fumarate (Quetiapine Fumarate 50 Mg Tablet) 150 mg PO BEDTIME [facility] Last Admin: 12/30/24 21:05 Dose: 150 mg Trazodone HCl (Trazodone Hcl 100 Mg Tablet) 100 mg PO BEDTIME [facility] Last Admin: 12/30/24 21:06 Dose: 100 mg Trazodone HCl (Trazodone Hcl 50 Mg Tablet) 50 mg PO BEDTIME MRX1 PRN PRN Reason: Insomnia Venlafaxine HCl (Venlafaxine Hcl Er 37.5 Mg Cap.Er.24h) 112.5 mg PO DAILY [facility] Last Admin: 12/30/24 08:53 Dose: 112.5 mg Allergies Allergies Allergy/AdvReac Type Severity Reaction Status Date / Time No Known Allergies Allergy Verified 12/27/24 01:26 Assessment & Plan Assessment & Plan (1) Depression, unspecified: Status: Acute Code(s): F32.A - Depression, unspecified (2) Anxiety disorder, unspecified: Status: Acute Code(s): F41.9 - Anxiety disorder, unspecified (3) Opioid use disorder: Status: Acute Code(s): F11.90 - Opioid use, unspecified, uncomplicated Plan 12/31: Continue current tx. Pt is a 39-year-old female with a PMH significant for ADHD, polysubstance use disorder on methadone sober 11 months, PTSD, anxiety, and depression who was [facility] for increasing depression with SI with plan to slit her wrists. Hospitalist consult for ECT risk stratification. ECT risk stratification Patient without previous problems with anesthesia RCRI 0 points, no further cardiac workup or treatment indicated at this time EKG showing QTc WNL, no evidence of ischemic changes Hx of seizure x10-15 years ago while in detox, no formal seizure disorder diagnosis Based on stated PMH, HPI, and physical exam, there are no apparent medical contraindications to the planned procedure Hx of seizure Continue lamotrigine UTI Continue cephalexin Polysubstance use disorder Continue methadone Nicotine dependence Continue NRT Thank you for us to participate in the care of this pt. Will sign off for now. Please re-consult if any acute issue or need arises. Reason for continued inpatient stay Substantial Risk for: rapid decompensation Time Spent With Patient Time: Total time managing care of this patient today ____ minutes.
[2024-12-31] MEDS: hydrOXYzine HCL 25 MG TABLET PO ×3 (09:25→21:06)
[2024-12-31] MEDS: QUEtiapine Fumarate 25 MG TABLET PO ×2 (09:25→14:05)
[2024-12-31] MEDS: HaloperidoL 5 MG TABLET PO ×3 (09:25→21:13)
[2024-12-31 20:00] VITALS: BP 102/60; PULSE 86; RESP 18; TEMP 37; O2SAT 93
[2024-12-31] MEDS: QUEtiapine Fumarate 50 MG TABLET 150 MG PO (21:05)
[2024-12-31] MEDS: Prazosin HCL 1 MG CAPSULE 2 MG PO (21:05)
[2024-12-31] MEDS: traZODone HCL 100 MG TABLET PO (21:06)
[2025-01-01] VITALS (8 sets, daily range): BP systolic 89–132; BP diastolic 53–78; PULSE 72–100; RESP 16; TEMP 36.4–37.4; O2SAT 94–98
[2025-01-01] MEDS: methADONE HCl 20 MG/2 ML ORAL.CONC 135 MG PO (07:58)
[2025-01-01] MEDS: hydrOXYzine HCL 25 MG TABLET PO ×2 (09:02→15:58)
[2025-01-01] MEDS: cephALEXin 500 MG CAPSULE PO ×3 (09:02→21:00)
[2025-01-01] MEDS: lamoTRIgine 100 MG TABLET 150 MG PO (09:02)
[2025-01-01] MEDS: Dextroamphetamine/Amphetamine XR 10 MG CAP.ER.24H PO (09:02)
[2025-01-01] MEDS: Gabapentin 600 MG TABLET PO ×3 (09:03→21:01)
[2025-01-01] MEDS: Venlafaxine HCl ER 37.5 MG CAP.ER.24H 112.5 MG PO (09:04)
[2025-01-01] MEDS: cloNIDine HCL 0.1 MG TABLET PO ×3 (09:05→20:58)
[2025-01-01] MEDS: QUEtiapine Fumarate 25 MG TABLET PO ×2 (09:05→15:58)
[2025-01-01] MEDS: Amphetamine Mixed Salts 10 MG TABLET PO (09:05)
[2025-01-01] MEDS: HaloperidoL 5 MG TABLET PO ×2 (09:05→15:58)
[2025-01-01] MEDS: Nicotine Polacrilex 2 MG GUM 4 MG BUCCAL ×3 (09:07→21:07)
[2025-01-01] MEDS: Nicotine 21 MG PATCH.TD24 TRANSDERMA (09:07)
[2025-01-01] MEDS: Albuterol Sulfate 90 MCG 8 GM INHALER 2 PUFF INHALE ×2 (09:30→21:23)
[2025-01-01] MEDS: Benztropine Mesylate 0.5 MG TABLET PO ×2 (10:38→20:59)
--- NOTE | 2025-01-01 11:48 | P.PNPSI_ITS ---
Subjective Subjective Date of Service: 01/01/25 Reason For Visit: psychosis Interim History: Continues with anxiety, low self esteem. Tells team she feels damaged, not adequate enough to be cared for. Not attending groups. Encouraged to try. Denies med SE. Continues to feel grateful that she may return to [facility]. Medication Compliance: Yes Side effects from medications: No Attending Groups: No Review of Systems Acute medical concerns: No Review of Systems Review of Systems constipation Mental Status Exam Mental Status Exam Patient Appearance: Appropriate Patient Orientation: Person, Place, Time and Situation Level of Consciousness: Alert Patient Behavior: Appropriate, Talkative and Good Eye Contact Mood Description: Withdrawn and Anxious Affect Description: Withdrawn and Anxious Patient Cognition Impaired: No Ability to Follow Directions: Good Speech Pattern: Spontaneous Speech Memory Description: Intact Hallucinations: None Delusions: Not Present Thought Process: Rumination Thought Content: positive for Perseveration Depressive Symptoms: Increased Anxiety and Thoughts of /Suicide (denies) Judgement: Good Diagnostics Vital Signs (24Hr): Vital Signs - 24 hr 12/31/24 20:00 01/01/25 08:00 01/01/25 09:05 Temperature 98.6 F 97.7 F Pulse Rate 86 72 Respiratory Rate 18 16 Blood Pressure 102/60 95/53 L 128/70 Pulse Oximetry 93 97 Oxygen Delivery Method Room Air BMI result Body Mass Index 32.1 Labs 12/27/24 03:07 12/29/24 08:33 Medications Medications Current Medications Al Hydroxide/Mg Hydroxide (Magnesium Hydrox/Alum Hydrox 30 Ml Oral.Susp) 30 ml PO Q6H PRN PRN Reason: Heartburn/Nausea Albuterol Sulfate (Albuterol Sulfate 90 Mcg 8 Gm Inhaler) 2 puff INHALE RQID [facility] Last Admin: 01/01/25 09:30 Dose: 2 puff Amphetamine/Dextroamphetamine (Dextroamphetamine/Amphetamine Xr 10 Mg Cap.Er.24h) 10 mg PO DAILY [facility] [place] Last Admin: 01/01/25 09:02 Dose: 10 mg Amphetamine/Dextroamphetamine (Amphetamine Mixed Salts 10 Mg Tablet) 10 mg PO DAILY [facility] [place] Last Admin: 01/01/25 09:05 Dose: 10 mg Benztropine Mesylate (Benztropine Mesylate 0.5 Mg Tablet) 0.5 mg PO BID [facility] [place] Last Admin: 01/01/25 10:38 Dose: 0.5 mg Cephalexin HCl (Cephalexin 500 Mg Capsule) 500 mg PO TID [facility] [place] Stop: 01/02/25 16:29 Last Admin: 01/01/25 09:02 Dose: 500 mg Clonidine HCl (Clonidine Hcl 0.1 Mg Tablet) 0.1 mg PO TID [facility] [place] Last Admin: 01/01/25 09:05 Dose: 0.1 mg Gabapentin (Gabapentin 600 Mg Tablet) 600 mg PO TID [facility] [place] Last Admin: 01/01/25 09:03 Dose: 600 mg Haloperidol (Haloperidol 5 Mg Tablet) 5 mg PO Q4H PRN PRN Reason: severe anxiety Last Admin: 01/01/25 09:05 Dose: 5 mg Hydroxyzine HCl (Hydroxyzine Hcl 25 Mg Tablet) 25 mg PO Q6H PRN PRN Reason: mild anxiety Last Admin: 01/01/25 09:02 Dose: 25 mg Lamotrigine (Lamotrigine 100 Mg Tablet) 150 mg PO DAILY [facility] [place] Last Admin: 01/01/25 09:02 Dose: 150 mg Magnesium Hydroxide (Milk Of Magnesia 30 Ml Oral.Susp) 30 ml PO DAILY PRN PRN Reason: Constipation Methadone HCl (Methadone Hcl 20 Mg/2 Ml Oral.Conc) 135 mg PO DAILY [facility] [place] Last Admin: 01/01/25 07:58 Dose: 135 mg Nicotine (Nicotine 21 Mg Patch.Td24) 21 mg TRANSDERMA DAILY PRN PRN Reason: smoking cessation Last Admin: 01/01/25 09:07 Dose: 21 mg Nicotine Polacrilex (Nicotine Polacrilex 2 Mg Gum) 2 mg BUCCAL QID PRN PRN Reason: Nicotine Cravings Last Admin: 12/31/24 21:07 Dose: 2 mg Nicotine Polacrilex (Nicotine Polacrilex 2 Mg Gum) 4 mg BUCCAL Q2H PRN PRN Reason: Smoking Cessation Last Admin: 01/01/25 09:07 Dose: 4 mg Polyethylene Glycol (Polyethylene Glycol 3350 17 Gm Powd.Pack) 17 gm PO DAILY PRN PRN Reason: Constipation Prazosin HCl (Prazosin Hcl 1 Mg Capsule) 2 mg PO BEDTIME [facility] [place] Last Admin: 12/31/24 21:05 Dose: 2 mg Quetiapine Fumarate (Quetiapine Fumarate 25 Mg Tablet) 25 mg PO BID PRN PRN Reason: Agitation Last Admin: 01/01/25 09:05 Dose: 25 mg Quetiapine Fumarate (Quetiapine Fumarate 50 Mg Tablet) 150 mg PO BEDTIME [facility] Last Admin: 12/31/24 21:05 Dose: 150 mg Trazodone HCl (Trazodone Hcl 100 Mg Tablet) 100 mg PO BEDTIME [facility] Last Admin: 12/31/24 21:06 Dose: 100 mg Trazodone HCl (Trazodone Hcl 50 Mg Tablet) 50 mg PO BEDTIME MRX1 PRN PRN Reason: Insomnia Venlafaxine HCl (Venlafaxine Hcl Er 37.5 Mg Cap.Er.24h) 112.5 mg PO DAILY [facility] [place] Last Admin: 01/01/25 09:04 Dose: 112.5 mg Allergies Allergies Allergy/AdvReac Type Severity Reaction Status Date / Time No Known Allergies Allergy Verified 12/27/24 01:26 Assessment & Plan Assessment & Plan (1) Depression, unspecified: Status: Acute Code(s): F32.A - Depression, unspecified (2) Anxiety disorder, unspecified: Status: Acute Code(s): F41.9 - Anxiety disorder, unspecified (3) Opioid use disorder: Status: Acute Code(s): F11.90 - Opioid use, unspecified, uncomplicated Plan 12/31: Continue current tx. 01/01: Increase venlafaxine to 150 mg. Colace, Dulcolax prn Pt is a 39-year-old female with a PMH significant for ADHD, polysubstance use disorder on methadone sober 11 months, PTSD, anxiety, and depression who was [facility] for increasing depression with SI with plan to slit her wrists. Hospitalist consult for ECT risk stratification. ECT risk stratification Patient without previous problems with anesthesia RCRI 0 points, no further cardiac workup or treatment indicated at this time EKG showing QTc WNL, no evidence of ischemic changes Hx of seizure x10-15 years ago while in detox, no formal seizure disorder diagnosis Based on stated PMH, HPI, and physical exam, there are no apparent medical contraindications to the planned procedure Hx of seizure Continue lamotrigine UTI Continue cephalexin Polysubstance use disorder Continue methadone Nicotine dependence Continue NRT Thank you for us to participate in the care of this pt. Will sign off for now. Please re-consult if any acute issue or need arises. Reason for continued inpatient stay Substantial Risk for: rapid decompensation Time Spent With Patient Time: Total time managing care of this patient today ____ minutes.
[2025-01-01] MEDS: Prazosin HCL 1 MG CAPSULE 2 MG PO (20:57)
[2025-01-01] MEDS: traZODone HCL 100 MG TABLET PO (20:59)
[2025-01-01] MEDS: QUEtiapine Fumarate 50 MG TABLET 150 MG PO (21:00)
[2025-01-02] MEDS: methADONE HCl 20 MG/2 ML ORAL.CONC 135 MG PO (07:52)
[2025-01-02 08:00] VITALS: BP 109/67; PULSE 88; RESP 18; TEMP 36.6; O2SAT 97
[2025-01-02] MEDS: Venlafaxine HCl ER 150 MG CAP.ER.24H PO (08:20)
[2025-01-02] MEDS: Amphetamine Mixed Salts 10 MG TABLET PO (08:20)
[2025-01-02] MEDS: lamoTRIgine 100 MG TABLET 150 MG PO (08:20)
[2025-01-02] MEDS: cloNIDine HCL 0.1 MG TABLET PO ×3 (08:20→20:34)
[2025-01-02] MEDS: Benztropine Mesylate 0.5 MG TABLET PO ×2 (08:20→20:34)
[2025-01-02] MEDS: Dextroamphetamine/Amphetamine XR 10 MG CAP.ER.24H PO (08:20)
[2025-01-02] MEDS: Gabapentin 600 MG TABLET PO ×3 (08:21→20:34)
[2025-01-02] MEDS: cephALEXin 500 MG CAPSULE PO ×2 (08:22→14:08)
[2025-01-02] MEDS: Nicotine 21 MG PATCH.TD24 TRANSDERMA (08:23)
[2025-01-02] MEDS: Albuterol Sulfate 90 MCG 8 GM INHALER 2 PUFF INHALE ×2 (08:59→20:35)
[2025-01-02] MEDS: polyethylene glycoL 3350 17 GM POWD.PACK PO (09:00)
[2025-01-02] MEDS: HaloperidoL 5 MG TABLET PO (09:00)
[2025-01-02] MEDS: Docusate Sodium 100 MG CAPSULE PO (09:00)
[2025-01-02] MEDS: Nicotine Polacrilex 2 MG GUM 4 MG BUCCAL (09:03)
[2025-01-02] MEDS: QUEtiapine Fumarate 25 MG TABLET PO (12:02)
[2025-01-02 14:09] VITALS: BP 115/72
[2025-01-02 19:56] VITALS: BP 123/67; PULSE 89; RESP 15; TEMP 36.5; O2SAT 94
[2025-01-02] MEDS: Prazosin HCL 1 MG CAPSULE 2 MG PO (20:33)
[2025-01-02] MEDS: QUEtiapine Fumarate 50 MG TABLET 150 MG PO (20:33)
[2025-01-02] MEDS: traZODone HCL 100 MG TABLET PO (20:34)
[2025-01-02] MEDS: HaloperidoL 1 MG TABLET 4 MG PO (20:42)
--- NOTE | 2025-01-02 20:56 | HO.PSYCHPN ---
Subjective Subjective Date of Service: 01/02/25 Reason For Visit: psychosis Interim History: Patient describes significant anxiety was intermittently tearful. Describes different mood lability periods of depression racing thoughts agitation. States she had recently been on clonazepam up to 4 mg daily. Patient states she feels that Seroquel just increases her weight feels like lamotrigine had not been helpful Medication Compliance: Yes Mental Status Exam Mental Status Exam Patient Appearance: Appropriate Patient Orientation: Person, Place, Time and Situation Level of Consciousness: Alert Patient Behavior: Appropriate, Talkative and Good Eye Contact Behavior Comments: Somewhat labile and tearful Mood Description: Withdrawn, Anxious and Apprehensive Affect Description: Withdrawn and Anxious Patient Cognition Impaired: No Ability to Follow Directions: Good Speech Pattern: Spontaneous Speech Memory Description: Intact Hallucinations: Auditory Delusions: Not Present Thought Process: Rumination Thought Content: positive for Perseveration Depressive Symptoms: Increased Anxiety and Thoughts of /Suicide (denies) Judgement: Fair Diagnostics Vital Signs (24Hr): Vital Signs - 24 hr 01/01/25 20:57 01/01/25 20:58 01/02/25 08:00 Temperature 97.8 F Pulse Rate 88 Respiratory Rate 18 Blood Pressure 107/65 107/65 109/67 Pulse Oximetry 97 Oxygen Delivery Method Room Air 01/02/25 14:09 01/02/25 19:56 Temperature 97.7 F Pulse Rate 89 Respiratory Rate 15 Blood Pressure 115/72 123/67 Pulse Oximetry 94 Oxygen Delivery Method BMI result Body Mass Index 32.1 Labs 12/27/24 03:07 12/29/24 08:33 Medications Medications Current Medications Al Hydroxide/Mg Hydroxide (Magnesium Hydrox/Alum Hydrox 30 Ml Oral.Susp) 30 ml PO Q6H PRN PRN Reason: Heartburn/Nausea Albuterol Sulfate (Albuterol Sulfate 90 Mcg 8 Gm Inhaler) 2 puff INHALE RQID [facility] Last Admin: 01/02/25 20:35 Dose: 2 puff Amphetamine/Dextroamphetamine (Dextroamphetamine/Amphetamine Xr 10 Mg Cap.Er.24h) 10 mg PO DAILY [facility] Last Admin: 01/02/25 08:20 Dose: 10 mg Amphetamine/Dextroamphetamine (Amphetamine Mixed Salts 10 Mg Tablet) 10 mg PO DAILY [facility] Last Admin: 01/02/25 08:20 Dose: 10 mg Benztropine Mesylate (Benztropine Mesylate 0.5 Mg Tablet) 0.5 mg PO BID [facility] Last Admin: 01/02/25 20:34 Dose: 0.5 mg Bisacodyl (Bisacodyl 5 Mg Tablet.Dr) 10 mg PO BEDTIME PRN PRN Reason: Constipation Clonidine HCl (Clonidine Hcl 0.1 Mg Tablet) 0.1 mg PO TID [facility] Last Admin: 01/02/25 20:34 Dose: 0.1 mg Docusate Sodium (Docusate Sodium 100 Mg Capsule) 100 mg PO BID PRN PRN Reason: Constipation Last Admin: 01/02/25 09:00 Dose: 100 mg Gabapentin (Gabapentin 600 Mg Tablet) 600 mg PO TID [facility] Last Admin: 01/02/25 20:34 Dose: 600 mg Haloperidol (Haloperidol 1 Mg Tablet) 4 mg PO Q4H PRN PRN Reason: severe anxiety Last Admin: 01/02/25 20:42 Dose: 4 mg Hydroxyzine HCl (Hydroxyzine Hcl 25 Mg Tablet) 25 mg PO Q6H PRN PRN Reason: mild anxiety Last Admin: 01/01/25 15:58 Dose: 25 mg Lamotrigine (Lamotrigine 100 Mg Tablet) 150 mg PO DAILY [facility] Last Admin: 01/02/25 08:20 Dose: 150 mg Magnesium Hydroxide (Milk Of Magnesia 30 Ml Oral.Susp) 30 ml PO DAILY PRN PRN Reason: Constipation Methadone HCl (Methadone Hcl 20 Mg/2 Ml Oral.Conc) 135 mg PO DAILY [facility] Last Admin: 01/02/25 07:52 Dose: 135 mg Nicotine (Nicotine 21 Mg Patch.Td24) 21 mg TRANSDERMA DAILY PRN PRN Reason: smoking cessation Last Admin: 01/02/25 08:23 Dose: 21 mg Nicotine Polacrilex (Nicotine Polacrilex 2 Mg Gum) 2 mg BUCCAL QID PRN PRN Reason: Nicotine Cravings Last Admin: 12/31/24 21:07 Dose: 2 mg Nicotine Polacrilex (Nicotine Polacrilex 2 Mg Gum) 4 mg BUCCAL Q2H PRN PRN Reason: Smoking Cessation Last Admin: 01/02/25 09:03 Dose: 4 mg Polyethylene Glycol (Polyethylene Glycol 3350 17 Gm Powd.Pack) 17 gm PO DAILY PRN PRN Reason: Constipation Last Admin: 01/02/25 09:00 Dose: 17 gm Prazosin HCl (Prazosin Hcl 1 Mg Capsule) 2 mg PO BEDTIME [facility] Last Admin: 01/02/25 20:33 Dose: 2 mg Quetiapine Fumarate (Quetiapine Fumarate 25 Mg Tablet) 25 mg PO BID PRN PRN Reason: Agitation Last Admin: 01/02/25 12:02 Dose: 25 mg Quetiapine Fumarate (Quetiapine Fumarate 50 Mg Tablet) 150 mg PO BEDTIME [facility] Last Admin: 01/02/25 20:33 Dose: 150 mg Trazodone HCl (Trazodone Hcl 100 Mg Tablet) 100 mg PO BEDTIME [facility] Last Admin: 01/02/25 20:34 Dose: 100 mg Trazodone HCl (Trazodone Hcl 50 Mg Tablet) 50 mg PO BEDTIME MRX1 PRN PRN Reason: Insomnia Venlafaxine HCl (Venlafaxine Hcl Er 150 Mg Cap.Er.24h) 150 mg PO DAILY [facility] Last Admin: 01/02/25 08:20 Dose: 150 mg Allergies Allergies Allergy/AdvReac Type Severity Reaction Status Date / Time No Known Allergies Allergy Verified 12/27/24 01:26 Assessment & Plan Assessment & Plan (1) Depression, unspecified: Status: Acute Code(s): F32.A - Depression, unspecified (2) Anxiety disorder, unspecified: Status: Acute Code(s): F41.9 - Anxiety disorder, unspecified (3) Opioid use disorder: Status: Acute Code(s): F11.90 - Opioid use, unspecified, uncomplicated Plan 12/31: Continue current tx. 01/01: Increase venlafaxine to 150 mg. Colace, Dulcolax prn 01/02/2025 Discussed option to increase Seroquel offered alternatives patient did not want to change medication also increase Lamictal. History of PTSD depression anxiety question of mixed states. Tried discussed option of Vraylar as adjunctive treatment of depression and would be helpful for mixed states. Patient did state she had found clonazepam helpful in the past do not see that was given over the past couple of years Pt is a 39-year-old female with a PMH significant for ADHD, polysubstance use disorder on methadone sober 11 months, PTSD, anxiety, and depression who was [facility] for increasing depression with SI with plan to slit her wrists. Hospitalist consult for ECT risk stratification. ECT risk stratification Patient without previous problems with anesthesia RCRI 0 points, no further cardiac workup or treatment indicated at this time EKG showing QTc WNL, no evidence of ischemic changes Hx of seizure x10-15 years ago while in detox, no formal seizure disorder diagnosis Based on stated PMH, HPI, and physical exam, there are no apparent medical contraindications to the planned procedure Hx of seizure Continue lamotrigine UTI Continue cephalexin Polysubstance use disorder Continue methadone Nicotine dependence Continue NRT Thank you for us to participate in the care of this pt. Will sign off for now. Please re-consult if any acute issue or need arises. Reason for continued inpatient stay Substantial Risk for: harm to self, inability to function and rapid decompensation Time Spent With Patient Time: Total time managing care of this patient today ____ minutes.
[2025-01-02] MEDS: hydrOXYzine HCL 25 MG TABLET PO (21:34)
[2025-01-03] MEDS: methADONE HCl 20 MG/2 ML ORAL.CONC 135 MG PO (07:45)
[2025-01-03 08:00] VITALS: BP 90/59; PULSE 100; RESP 18; TEMP 36.9; O2SAT 97
[2025-01-03] MEDS: Venlafaxine HCl ER 150 MG CAP.ER.24H PO (08:35)
[2025-01-03] MEDS: Benztropine Mesylate 0.5 MG TABLET PO ×2 (08:35→20:16)
[2025-01-03] MEDS: Albuterol Sulfate 90 MCG 8 GM INHALER 2 PUFF INHALE ×2 (08:35→20:16)
[2025-01-03] MEDS: Dextroamphetamine/Amphetamine XR 10 MG CAP.ER.24H PO (08:36)
[2025-01-03] MEDS: polyethylene glycoL 3350 17 GM POWD.PACK PO (08:36)
[2025-01-03] MEDS: Amphetamine Mixed Salts 10 MG TABLET PO (08:36)
[2025-01-03] MEDS: Docusate Sodium 100 MG CAPSULE PO (08:36)
[2025-01-03] MEDS: Gabapentin 600 MG TABLET PO ×3 (08:36→20:16)
[2025-01-03] MEDS: lamoTRIgine 100 MG TABLET 150 MG PO (08:36)
[2025-01-03] MEDS: Nicotine 21 MG PATCH.TD24 TRANSDERMA (08:38)
[2025-01-03] MEDS: HaloperidoL 1 MG TABLET 4 MG PO ×3 (08:42→19:32)
[2025-01-03 08:45] VITALS: BP 112/73
[2025-01-03] MEDS: cloNIDine HCL 0.1 MG TABLET PO ×3 (08:45→20:16)
[2025-01-03] MEDS: Nicotine Polacrilex 2 MG GUM 4 MG BUCCAL (13:31)
[2025-01-03 15:16] VITALS: BP 123/69
[2025-01-03] MEDS: QUEtiapine Fumarate 25 MG TABLET PO (15:16)
[2025-01-03] MEDS: hydrOXYzine HCL 25 MG TABLET PO (19:13)
[2025-01-03 20:00] VITALS: BP 111/70; PULSE 82; RESP 15; TEMP 36.6; O2SAT 97
[2025-01-03] MEDS: Prazosin HCL 1 MG CAPSULE 2 MG PO (20:15)
[2025-01-03] MEDS: QUEtiapine Fumarate 50 MG TABLET 150 MG PO (20:15)
[2025-01-03] MEDS: traZODone HCL 100 MG TABLET PO (20:16)
--- NOTE | 2025-01-03 23:09 | P.PNPSI_ITS ---
Subjective Subjective Date of Service: 01/03/25 Reason For Visit: psychosis Interim History: Continue to be chatty and engaged. FOund on milieu. Shares that she spoke with her uncle who informed her her father has some kind of cancer. Familh in [place], Sleep intact, SI here and there none today. Review of Systems Review of Systems constipation Yes all other systems are reviewed and are negative Mental Status Exam Mental Status Exam Narrative: hospital [facility]. disheveled. cooperative. no PMA/PMR. speech incr amount, nml rate, nml loudness, decr latency. thoughts linear and logical. affect variable, variably intense, mod-labile - from smiling and laughing to tearful. mood just anxious and sad. vaguely endorses SI. denies HI/VH. endorses AH of derogatory commentary. Patient Appearance: Appropriate Patient Orientation: Person, Place, Time and Situation Level of Consciousness: Alert Patient Behavior: Appropriate, Talkative and Good Eye Contact Mood Description: Withdrawn and Anxious Affect Description: Withdrawn and Anxious Patient Cognition Impaired: No Ability to Follow Directions: Good Speech Pattern: Spontaneous Speech Memory Description: Intact Diagnostics Vital Signs (24Hr): Vital Signs - 24 hr 01/03/25 08:00 01/03/25 08:45 01/03/25 15:16 Temperature 98.5 F Pulse Rate 100 Respiratory Rate 18 Blood Pressure 90/59 L 112/73 123/69 Pulse Oximetry 97 Oxygen Delivery Method Room Air 01/03/25 20:00 Temperature 98 F Pulse Rate 82 Respiratory Rate 15 Blood Pressure 111/70 Pulse Oximetry 97 Oxygen Delivery Method BMI result Body Mass Index 32.1 Labs 12/27/24 03:07 12/29/24 08:33 Medications Medications Current Medications Al Hydroxide/Mg Hydroxide (Magnesium Hydrox/Alum Hydrox 30 Ml Oral.Susp) 30 ml PO Q6H PRN PRN Reason: Heartburn/Nausea Albuterol Sulfate (Albuterol Sulfate 90 Mcg 8 Gm Inhaler) 2 puff INHALE RQID [facility] Last Admin: 01/03/25 20:16 Dose: 2 puff Amphetamine/Dextroamphetamine (Dextroamphetamine/Amphetamine Xr 10 Mg Cap.Er.24h) 10 mg PO DAILY [facility] Last Admin: 01/03/25 08:36 Dose: 10 mg Amphetamine/Dextroamphetamine (Amphetamine Mixed Salts 10 Mg Tablet) 10 mg PO DAILY [facility] Last Admin: 01/03/25 08:36 Dose: 10 mg Benztropine Mesylate (Benztropine Mesylate 0.5 Mg Tablet) 0.5 mg PO BID [facility] Last Admin: 01/03/25 20:16 Dose: 0.5 mg Bisacodyl (Bisacodyl 5 Mg Tablet.Dr) 10 mg PO BEDTIME PRN PRN Reason: Constipation Clonidine HCl (Clonidine Hcl 0.1 Mg Tablet) 0.1 mg PO TID [facility] Last Admin: 01/03/25 20:16 Dose: 0.1 mg Docusate Sodium (Docusate Sodium 100 Mg Capsule) 100 mg PO BID PRN PRN Reason: Constipation Last Admin: 01/03/25 08:36 Dose: 100 mg Gabapentin (Gabapentin 600 Mg Tablet) 600 mg PO TID [facility] Last Admin: 01/03/25 20:16 Dose: 600 mg Haloperidol (Haloperidol 1 Mg Tablet) 4 mg PO Q4H PRN PRN Reason: severe anxiety Last Admin: 01/03/25 19:32 Dose: 4 mg Hydroxyzine HCl (Hydroxyzine Hcl 25 Mg Tablet) 25 mg PO Q6H PRN PRN Reason: mild anxiety Last Admin: 01/03/25 19:13 Dose: 25 mg Lamotrigine (Lamotrigine 100 Mg Tablet) 150 mg PO DAILY [facility] Last Admin: 01/03/25 08:36 Dose: 150 mg Magnesium Hydroxide (Milk Of Magnesia 30 Ml Oral.Susp) 30 ml PO DAILY PRN PRN Reason: Constipation Methadone HCl (Methadone Hcl 20 Mg/2 Ml Oral.Conc) 135 mg PO DAILY [facility] Last Admin: 01/03/25 07:45 Dose: 135 mg Nicotine (Nicotine 21 Mg Patch.Td24) 21 mg TRANSDERMA DAILY PRN PRN Reason: smoking cessation Last Admin: 01/03/25 08:38 Dose: 21 mg Nicotine Polacrilex (Nicotine Polacrilex 2 Mg Gum) 2 mg BUCCAL QID PRN PRN Reason: Nicotine Cravings Last Admin: 12/31/24 21:07 Dose: 2 mg Nicotine Polacrilex (Nicotine Polacrilex 2 Mg Gum) 4 mg BUCCAL Q2H PRN PRN Reason: Smoking Cessation Last Admin: 01/03/25 13:31 Dose: 4 mg Polyethylene Glycol (Polyethylene Glycol 3350 17 Gm Powd.Pack) 17 gm PO DAILY PRN PRN Reason: Constipation Last Admin: 01/03/25 08:36 Dose: 17 gm Prazosin HCl (Prazosin Hcl 1 Mg Capsule) 2 mg PO BEDTIME [facility] Last Admin: 01/03/25 20:15 Dose: 2 mg Quetiapine Fumarate (Quetiapine Fumarate 25 Mg Tablet) 25 mg PO BID PRN PRN Reason: Agitation Last Admin: 01/03/25 15:16 Dose: 25 mg Quetiapine Fumarate (Quetiapine Fumarate 50 Mg Tablet) 150 mg PO BEDTIME [facility] Last Admin: 01/03/25 20:15 Dose: 150 mg Trazodone HCl (Trazodone Hcl 100 Mg Tablet) 100 mg PO BEDTIME [facility] Last Admin: 01/03/25 20:16 Dose: 100 mg Trazodone HCl (Trazodone Hcl 50 Mg Tablet) 50 mg PO BEDTIME MRX1 PRN PRN Reason: Insomnia Venlafaxine HCl (Venlafaxine Hcl Er 150 Mg Cap.Er.24h) 150 mg PO DAILY [facility] Last Admin: 01/03/25 08:35 Dose: 150 mg Allergies Allergies Allergy/AdvReac Type Severity Reaction Status Date / Time No Known Allergies Allergy Verified 12/27/24 01:26 Assessment & Plan Assessment & Plan (1) Depression, unspecified: Status: Acute Code(s): F32.A - Depression, unspecified (2) Anxiety disorder, unspecified: Status: Acute Code(s): F41.9 - Anxiety disorder, unspecified (3) Opioid use disorder: Status: Acute Code(s): F11.90 - Opioid use, unspecified, uncomplicated Plan 12/31: Continue current tx. 01/01: Increase venlafaxine to 150 mg. Colace, Dulcolax prn continue treatment Pt is a 39-year-old female with a PMH significant for ADHD, polysubstance use disorder on methadone sober 11 months, PTSD, anxiety, and depression who was [facility] for increasing depression with SI with plan to slit her wrists. Hospitalist consult for ECT risk stratification. ECT risk stratification Patient without previous problems with anesthesia RCRI 0 points, no further cardiac workup or treatment indicated at this time EKG showing QTc WNL, no evidence of ischemic changes Hx of seizure x10-15 years ago while in detox, no formal seizure disorder diagnosis Based on stated PMH, HPI, and physical exam, there are no apparent medical contraindications to the planned procedure Hx of seizure Continue lamotrigine UTI Continue cephalexin Polysubstance use disorder Continue methadone Nicotine dependence Continue NRT Thank you for us to participate in the care of this pt. Will sign off for now. Please re-consult if any acute issue or need arises. Reason for continued inpatient stay Substantial Risk for: med/psych decompensation Time Spent With Patient Time: Total time managing care of this patient today ____ minutes.
[2025-01-04] MEDS: methADONE HCl 20 MG/2 ML ORAL.CONC 135 MG PO (07:46)
[2025-01-04 07:50] VITALS: BP 105/55; PULSE 75; RESP 18; TEMP 37; O2SAT 95
[2025-01-04] MEDS: lamoTRIgine 100 MG TABLET 150 MG PO (08:02)
[2025-01-04] MEDS: Amphetamine Mixed Salts 10 MG TABLET PO (08:03)
[2025-01-04] MEDS: Dextroamphetamine/Amphetamine XR 10 MG CAP.ER.24H PO (08:03)
[2025-01-04] MEDS: QUEtiapine Fumarate 25 MG TABLET PO (08:03)
[2025-01-04] MEDS: Gabapentin 600 MG TABLET PO ×3 (08:04→20:57)
[2025-01-04] MEDS: Venlafaxine HCl ER 150 MG CAP.ER.24H PO (08:04)
[2025-01-04] MEDS: Benztropine Mesylate 0.5 MG TABLET PO ×2 (08:04→20:57)
[2025-01-04] MEDS: cloNIDine HCL 0.1 MG TABLET PO ×3 (08:04→20:57)
[2025-01-04] MEDS: HaloperidoL 1 MG TABLET 4 MG PO ×3 (08:05→20:57)
[2025-01-04] MEDS: Nicotine 21 MG PATCH.TD24 TRANSDERMA (08:07)
[2025-01-04] MEDS: Albuterol Sulfate 90 MCG 8 GM INHALER 2 PUFF INHALE (08:13)
--- NOTE | 2025-01-04 09:54 | HO.PSYCHPN ---
Subjective Subjective Date of Service: 01/04/25 Reason For Visit: psychosis Subjective Notes: Conditional Voluntary and 3 Day Healthcare Proxy: No Guardianship: No Medical Problems Affecting Mental Status: No Interim History: Pt discussed learning that her father has a new diagnosis of cancer. Discussed return to [place] to live with parents, assist in father's care. Reviewed how this new information has changed her perspective on several ideas she has for her future, her recovery and treatment. Medication Compliance: Yes Side effects from medications: No Attending Groups: Intermittent Review of Systems Acute medical concerns: No Medical Review of Systems: unchanged Review of Systems Review of Systems Denies today. Mental Status Exam Mental Status Exam Patient Appearance: Appropriate Patient Orientation: Person, Place, Time and Situation Level of Consciousness: Alert Patient Behavior: Talkative and Good Eye Contact Mood Description: Sad (grieving with the new news of her father's illness.) Affect Description: Flat Patient Cognition Impaired: No Ability to Follow Directions: Good Speech Pattern: Spontaneous Speech Memory Description: Intact Hallucinations: None Delusions: Not Present Perceptual Disturbances: Depersonalization Thought Process: Intact, Distracted and Rumination Thought Content: positive for Circumstantial, positive for Perseveration and positive for Suicidal Ideation (denies) Depressive Symptoms: Thoughts of /Suicide (denies) Judgement: Fair Diagnostics Vital Signs (24Hr): Vital Signs - 24 hr 01/03/25 15:16 01/03/25 20:00 01/04/25 07:50 Temperature 98 F 98.6 F Pulse Rate 82 75 Respiratory Rate 15 18 Blood Pressure 123/69 111/70 105/55 L Pulse Oximetry 97 95 Oxygen Delivery Method Room Air BMI result Body Mass Index 32.1 Labs 12/27/24 03:07 12/29/24 08:33 Medications Medications Current Medications Al Hydroxide/Mg Hydroxide (Magnesium Hydrox/Alum Hydrox 30 Ml Oral.Susp) 30 ml PO Q6H PRN PRN Reason: Heartburn/Nausea Albuterol Sulfate (Albuterol Sulfate 90 Mcg 8 Gm Inhaler) 2 puff INHALE RQID [facility] Last Admin: 01/04/25 08:13 Dose: 2 puff Amphetamine/Dextroamphetamine (Dextroamphetamine/Amphetamine Xr 10 Mg Cap.Er.24h) 10 mg PO DAILY [facility] Last Admin: 01/04/25 08:03 Dose: 10 mg Amphetamine/Dextroamphetamine (Amphetamine Mixed Salts 10 Mg Tablet) 10 mg PO DAILY [facility] Last Admin: 01/04/25 08:03 Dose: 10 mg Benztropine Mesylate (Benztropine Mesylate 0.5 Mg Tablet) 0.5 mg PO BID [facility] Last Admin: 01/04/25 08:04 Dose: 0.5 mg Bisacodyl (Bisacodyl 5 Mg Tablet.Dr) 10 mg PO BEDTIME PRN PRN Reason: Constipation Clonidine HCl (Clonidine Hcl 0.1 Mg Tablet) 0.1 mg PO TID [facility] Last Admin: 01/04/25 08:04 Dose: 0.1 mg Docusate Sodium (Docusate Sodium 100 Mg Capsule) 100 mg PO BID PRN PRN Reason: Constipation Last Admin: 01/03/25 08:36 Dose: 100 mg Gabapentin (Gabapentin 600 Mg Tablet) 600 mg PO TID [facility] Last Admin: 01/04/25 08:04 Dose: 600 mg Haloperidol (Haloperidol 1 Mg Tablet) 4 mg PO Q4H PRN PRN Reason: severe anxiety Last Admin: 01/04/25 08:05 Dose: 4 mg Hydroxyzine HCl (Hydroxyzine Hcl 25 Mg Tablet) 25 mg PO Q6H PRN PRN Reason: mild anxiety Last Admin: 01/03/25 19:13 Dose: 25 mg Lamotrigine (Lamotrigine 100 Mg Tablet) 150 mg PO DAILY [facility] Last Admin: 01/04/25 08:02 Dose: 150 mg Magnesium Hydroxide (Milk Of Magnesia 30 Ml Oral.Susp) 30 ml PO DAILY PRN PRN Reason: Constipation Methadone HCl (Methadone Hcl 20 Mg/2 Ml Oral.Conc) 135 mg PO DAILY [facility] Last Admin: 01/04/25 07:46 Dose: 135 mg Nicotine (Nicotine 21 Mg Patch.Td24) 21 mg TRANSDERMA DAILY PRN PRN Reason: smoking cessation Last Admin: 01/04/25 08:07 Dose: 21 mg Nicotine Polacrilex (Nicotine Polacrilex 2 Mg Gum) 2 mg BUCCAL QID PRN PRN Reason: Nicotine Cravings Last Admin: 12/31/24 21:07 Dose: 2 mg Nicotine Polacrilex (Nicotine Polacrilex 2 Mg Gum) 4 mg BUCCAL Q2H PRN PRN Reason: Smoking Cessation Last Admin: 01/03/25 13:31 Dose: 4 mg Polyethylene Glycol (Polyethylene Glycol 3350 17 Gm Powd.Pack) 17 gm PO DAILY PRN PRN Reason: Constipation Last Admin: 01/03/25 08:36 Dose: 17 gm Prazosin HCl (Prazosin Hcl 1 Mg Capsule) 2 mg PO BEDTIME [facility] Last Admin: 01/03/25 20:15 Dose: 2 mg Quetiapine Fumarate (Quetiapine Fumarate 25 Mg Tablet) 25 mg PO BID PRN PRN Reason: Agitation Last Admin: 01/04/25 08:03 Dose: 25 mg Quetiapine Fumarate (Quetiapine Fumarate 50 Mg Tablet) 150 mg PO BEDTIME [facility] Last Admin: 01/03/25 20:15 Dose: 150 mg Trazodone HCl (Trazodone Hcl 100 Mg Tablet) 100 mg PO BEDTIME [facility] Last Admin: 01/03/25 20:16 Dose: 100 mg Trazodone HCl (Trazodone Hcl 50 Mg Tablet) 50 mg PO BEDTIME MRX1 PRN PRN Reason: Insomnia Venlafaxine HCl (Venlafaxine Hcl Er 150 Mg Cap.Er.24h) 150 mg PO DAILY [facility] Last Admin: 01/04/25 08:04 Dose: 150 mg Allergies Allergies Allergy/AdvReac Type Severity Reaction Status Date / Time No Known Allergies Allergy Verified 12/27/24 01:26 Assessment & Plan Assessment & Plan (1) Depression, unspecified: Status: Acute Code(s): F32.A - Depression, unspecified (2) Anxiety disorder, unspecified: Status: Acute Code(s): F41.9 - Anxiety disorder, unspecified (3) Opioid use disorder: Status: Acute Code(s): F11.90 - Opioid use, unspecified, uncomplicated Plan 12/31: Continue current tx. 01/01: Increase venlafaxine to 150 mg. Colace, Dulcolax prn continue treatment 01/04: Continue tx [facility] this week. Pt is a 39-year-old female with a PMH significant for ADHD, polysubstance use disorder on methadone sober 11 months, PTSD, anxiety, and depression who was [facility] for increasing depression with SI with plan to slit her wrists. Hospitalist consult for ECT risk stratification. ECT risk stratification Patient without previous problems with anesthesia RCRI 0 points, no further cardiac workup or treatment indicated at this time EKG showing QTc WNL, no evidence of ischemic changes Hx of seizure x10-15 years ago while in detox, no formal seizure disorder diagnosis Based on stated PMH, HPI, and physical exam, there are no apparent medical contraindications to the planned procedure Hx of seizure Continue lamotrigine UTI Continue cephalexin Polysubstance use disorder Continue methadone Nicotine dependence Continue NRT Thank you for us to participate in the care of this pt. Will sign off for now. Please re-consult if any acute issue or need arises. Reason for continued inpatient stay Substantial Risk for: rapid decompensation Time Spent With Patient Time: Total time managing care of this patient today ____ minutes.
[2025-01-04] MEDS: clonazePAM 0.5 MG TABLET PO ×2 (15:52→20:57)
[2025-01-04 15:56] VITALS: BP 117/80
[2025-01-04 20:00] VITALS: BP 125/80; PULSE 71; RESP 14; TEMP 36.6; O2SAT 99
[2025-01-04] MEDS: QUEtiapine Fumarate 50 MG TABLET 150 MG PO (20:57)
[2025-01-04] MEDS: traZODone HCL 100 MG TABLET PO (20:57)
[2025-01-04] MEDS: Prazosin HCL 1 MG CAPSULE 2 MG PO (20:57)
[2025-01-05] MEDS: methADONE HCl 20 MG/2 ML ORAL.CONC 135 MG PO (07:54)
[2025-01-05 08:00] VITALS: BP 94/51; PULSE 78; RESP 18; TEMP 36.4; O2SAT 95
[2025-01-05] MEDS: lamoTRIgine 100 MG TABLET 150 MG PO (08:37)
[2025-01-05] MEDS: Amphetamine Mixed Salts 10 MG TABLET PO (08:38)
[2025-01-05] MEDS: Venlafaxine HCl ER 150 MG CAP.ER.24H PO (08:38)
[2025-01-05] MEDS: Dextroamphetamine/Amphetamine XR 10 MG CAP.ER.24H PO (08:38)
[2025-01-05] MEDS: Gabapentin 600 MG TABLET PO ×3 (08:38→20:37)
[2025-01-05] MEDS: Benztropine Mesylate 0.5 MG TABLET PO ×2 (08:38→20:37)
[2025-01-05 08:39] VITALS: BP 94/51
[2025-01-05] MEDS: cloNIDine HCL 0.1 MG TABLET PO ×3 (08:39→20:37)
[2025-01-05] MEDS: clonazePAM 0.5 MG TABLET PO (08:58)
[2025-01-05] MEDS: Nicotine 21 MG PATCH.TD24 TRANSDERMA (08:58)
[2025-01-05] MEDS: Nicotine Polacrilex 2 MG GUM 4 MG BUCCAL ×3 (09:00→20:37)
--- NOTE | 2025-01-05 09:59 | P.PNPSI_ITS ---
Subjective Subjective Date of Service: 01/05/25 Reason For Visit: psychosis Subjective Notes: Conditional Voluntary Healthcare Proxy: No Guardianship: No Medical Problems Affecting Mental Status: No Interim History: Pt reports she may DC to [facility] on 01/06, prior to returning to [place]. She reports this plan will be more stabilizing for her as the new news of father's illness continues to be setting in. Denies SI,HI,AH,VH. Reports regime to be tolerated and helpful. Medication Compliance: Yes Side effects from medications: No Attending Groups: Intermittent Review of Systems Acute medical concerns: No Review of Systems Review of Systems Denies Mental Status Exam Mental Status Exam Patient Appearance: Appropriate Patient Orientation: Person, Place, Time and Situation Level of Consciousness: Alert Patient Behavior: Talkative and Good Eye Contact Mood Description: Sad (grieving with the new news of her father's illness.) Affect Description: Flat Patient Cognition Impaired: No Ability to Follow Directions: Good Speech Pattern: Spontaneous Speech Memory Description: Intact Hallucinations: None Delusions: Not Present Perceptual Disturbances: Depersonalization Thought Process: Intact, Distracted and Rumination Thought Content: positive for Circumstantial, positive for Perseveration and positive for Suicidal Ideation (denies) Depressive Symptoms: Thoughts of /Suicide (denies) Judgement: Fair Diagnostics Vital Signs (24Hr): Vital Signs - 24 hr 01/04/25 15:56 01/04/25 20:00 01/05/25 08:00 Temperature 97.8 F 97.5 F Pulse Rate 71 78 Respiratory Rate 14 18 Blood Pressure 117/80 125/80 94/51 L Pulse Oximetry 99 95 Oxygen Delivery Method Room Air Room Air 01/05/25 08:39 Temperature Pulse Rate Respiratory Rate Blood Pressure 94/51 L Pulse Oximetry Oxygen Delivery Method BMI result Body Mass Index 32.1 Labs 12/27/24 03:07 12/29/24 08:33 Medications Medications Current Medications Al Hydroxide/Mg Hydroxide (Magnesium Hydrox/Alum Hydrox 30 Ml Oral.Susp) 30 ml PO Q6H PRN PRN Reason: Heartburn/Nausea Albuterol Sulfate (Albuterol Sulfate 90 Mcg 8 Gm Inhaler) 2 puff INHALE RQID [facility] Last Admin: 01/05/25 08:41 Dose: Not Given Amphetamine/Dextroamphetamine (Dextroamphetamine/Amphetamine Xr 10 Mg Cap.Er.24h) 10 mg PO DAILY [facility] Last Admin: 01/05/25 08:38 Dose: 10 mg Amphetamine/Dextroamphetamine (Amphetamine Mixed Salts 10 Mg Tablet) 10 mg PO DAILY [facility] Last Admin: 01/05/25 08:38 Dose: 10 mg Benztropine Mesylate (Benztropine Mesylate 0.5 Mg Tablet) 0.5 mg PO BID [facility] Last Admin: 01/05/25 08:38 Dose: 0.5 mg Bisacodyl (Bisacodyl 5 Mg Tablet.Dr) 10 mg PO BEDTIME PRN PRN Reason: Constipation Clonazepam (Clonazepam 0.5 Mg Tablet) 0.5 mg PO BID PRN PRN Reason: Anxiety Last Admin: 01/05/25 08:58 Dose: 0.5 mg Clonidine HCl (Clonidine Hcl 0.1 Mg Tablet) 0.1 mg PO TID [facility] Last Admin: 01/05/25 08:39 Dose: 0.1 mg Docusate Sodium (Docusate Sodium 100 Mg Capsule) 100 mg PO BID PRN PRN Reason: Constipation Last Admin: 01/03/25 08:36 Dose: 100 mg Gabapentin (Gabapentin 600 Mg Tablet) 600 mg PO TID [facility] Last Admin: 01/05/25 08:38 Dose: 600 mg Haloperidol (Haloperidol 1 Mg Tablet) 4 mg PO Q4H PRN PRN Reason: severe anxiety Last Admin: 01/04/25 20:57 Dose: 4 mg Lamotrigine (Lamotrigine 100 Mg Tablet) 150 mg PO DAILY [facility] Last Admin: 01/05/25 08:37 Dose: 150 mg Magnesium Hydroxide (Milk Of Magnesia 30 Ml Oral.Susp) 30 ml PO DAILY PRN PRN Reason: Constipation Methadone HCl (Methadone Hcl 20 Mg/2 Ml Oral.Conc) 135 mg PO DAILY [facility] Last Admin: 01/05/25 07:54 Dose: 135 mg Nicotine (Nicotine 21 Mg Patch.Td24) 21 mg TRANSDERMA DAILY PRN PRN Reason: smoking cessation Last Admin: 01/05/25 08:58 Dose: 21 mg Nicotine Polacrilex (Nicotine Polacrilex 2 Mg Gum) 2 mg BUCCAL QID PRN PRN Reason: Nicotine Cravings Last Admin: 12/31/24 21:07 Dose: 2 mg Nicotine Polacrilex (Nicotine Polacrilex 2 Mg Gum) 4 mg BUCCAL Q2H PRN PRN Reason: Smoking Cessation Last Admin: 01/05/25 09:00 Dose: 4 mg Polyethylene Glycol (Polyethylene Glycol 3350 17 Gm Powd.Pack) 17 gm PO DAILY PRN PRN Reason: Constipation Last Admin: 01/03/25 08:36 Dose: 17 gm Prazosin HCl (Prazosin Hcl 1 Mg Capsule) 2 mg PO BEDTIME [facility] Last Admin: 01/04/25 20:57 Dose: 2 mg Quetiapine Fumarate (Quetiapine Fumarate 25 Mg Tablet) 25 mg PO BID PRN PRN Reason: Agitation Last Admin: 01/04/25 08:03 Dose: 25 mg Quetiapine Fumarate (Quetiapine Fumarate 50 Mg Tablet) 150 mg PO BEDTIME [facility] Last Admin: 01/04/25 20:57 Dose: 150 mg Trazodone HCl (Trazodone Hcl 100 Mg Tablet) 100 mg PO BEDTIME [facility] Last Admin: 01/04/25 20:57 Dose: 100 mg Trazodone HCl (Trazodone Hcl 50 Mg Tablet) 50 mg PO BEDTIME MRX1 PRN PRN Reason: Insomnia Venlafaxine HCl (Venlafaxine Hcl Er 150 Mg Cap.Er.24h) 150 mg PO DAILY [facility] Last Admin: 01/05/25 08:38 Dose: 150 mg Allergies Allergies Allergy/AdvReac Type Severity Reaction Status Date / Time No Known Allergies Allergy Verified 12/27/24 01:26 Assessment & Plan Assessment & Plan (1) Depression, unspecified: Status: Acute Code(s): F32.A - Depression, unspecified (2) Anxiety disorder, unspecified: Status: Acute Code(s): F41.9 - Anxiety disorder, unspecified (3) Opioid use disorder: Status: Acute Code(s): F11.90 - Opioid use, unspecified, uncomplicated Plan 12/31: Continue current tx. 01/01: Increase venlafaxine to 150 mg. Colace, Dulcolax prn continue treatment 01/05: DC tentative 01/06 to [facility]. Pt is a 39-year-old female with a PMH significant for ADHD, polysubstance use disorder on methadone sober 11 months, PTSD, anxiety, and depression who was admitted to Psychiatric unit for increasing depression with SI with plan to slit her wrists. Hospitalist consult for ECT risk stratification. ECT risk stratification Patient without previous problems with anesthesia RCRI 0 points, no further cardiac workup or treatment indicated at this time EKG showing QTc WNL, no evidence of ischemic changes Hx of seizure x10-15 years ago while in detox, no formal seizure disorder diagnosis Based on stated PMH, HPI, and physical exam, there are no apparent medical contraindications to the planned procedure Hx of seizure Continue lamotrigine UTI Continue cephalexin Polysubstance use disorder Continue methadone Nicotine dependence Continue NRT Thank you for us to participate in the care of this pt. Will sign off for now. Please re-consult if any acute issue or need arises. Reason for continued inpatient stay Substantial Risk for: stable for discharge Time Spent With Patient Time: Total time managing care of this patient today ____ minutes.
[2025-01-05] MEDS: HaloperidoL 1 MG TABLET 4 MG PO ×2 (10:21→14:54)
[2025-01-05 14:54] VITALS: BP 121/76
[2025-01-05] MEDS: QUEtiapine Fumarate 25 MG TABLET PO (16:22)
[2025-01-05 20:00] VITALS: BP 123/78; PULSE 93; RESP 18; TEMP 36.6; O2SAT 98
[2025-01-05] MEDS: Prazosin HCL 1 MG CAPSULE 2 MG PO (20:36)
[2025-01-05] MEDS: QUEtiapine Fumarate 50 MG TABLET 150 MG PO (20:37)
[2025-01-05] MEDS: traZODone HCL 100 MG TABLET PO (20:37)
[2025-01-06] MEDS: methADONE HCl 20 MG/2 ML ORAL.CONC 135 MG PO (07:45)
[2025-01-06 07:55] VITALS: BP 101/58; PULSE 71; RESP 16; TEMP 36.5; O2SAT 95
[2025-01-06] MEDS: HaloperidoL 1 MG TABLET 4 MG PO (08:31)
[2025-01-06] MEDS: lamoTRIgine 100 MG TABLET 150 MG PO (08:32)
[2025-01-06] MEDS: Amphetamine Mixed Salts 10 MG TABLET PO (08:32)
[2025-01-06] MEDS: cloNIDine HCL 0.1 MG TABLET PO (08:32)
[2025-01-06] MEDS: Docusate Sodium 100 MG CAPSULE PO (08:32)
[2025-01-06] MEDS: Dextroamphetamine/Amphetamine XR 10 MG CAP.ER.24H PO (08:32)
[2025-01-06] MEDS: Benztropine Mesylate 0.5 MG TABLET PO (08:32)
[2025-01-06] MEDS: Gabapentin 600 MG TABLET PO (08:32)
[2025-01-06] MEDS: Venlafaxine HCl ER 150 MG CAP.ER.24H PO (08:32)
[2025-01-06] MEDS: Nicotine 21 MG PATCH.TD24 TRANSDERMA (08:33)
[2025-01-06] MEDS: QUEtiapine Fumarate 25 MG TABLET PO (08:33)
[2025-01-06] MEDS: Nicotine Polacrilex 2 MG GUM 4 MG BUCCAL (08:33)
--- NOTE | 2025-01-06 09:49 | P.PNPSI_ITS ---
Subjective Subjective Reason For Visit: psychosis Diagnostics Vital Signs (24Hr): Vital Signs - 24 hr 01/05/25 14:54 01/05/25 20:00 01/06/25 07:55 Temperature 97.8 F 97.7 F Pulse Rate 93 71 Respiratory Rate 18 16 Blood Pressure 121/76 123/78 101/58 L Pulse Oximetry 98 95 Oxygen Delivery Method Room Air BMI result Body Mass Index 32.1 Labs 12/27/24 03:07 12/29/24 08:33 Medications Medications Current Medications Al Hydroxide/Mg Hydroxide (Magnesium Hydrox/Alum Hydrox 30 Ml Oral.Susp) 30 ml PO Q6H PRN PRN Reason: Heartburn/Nausea Albuterol Sulfate (Albuterol Sulfate 90 Mcg 8 Gm Inhaler) 2 puff INHALE RQID [facility] Last Admin: 01/05/25 21:49 Dose: Not Given Amphetamine/Dextroamphetamine (Dextroamphetamine/Amphetamine Xr 10 Mg Cap.Er.24h) 10 mg PO DAILY [facility] Last Admin: 01/06/25 08:32 Dose: 10 mg Amphetamine/Dextroamphetamine (Amphetamine Mixed Salts 10 Mg Tablet) 10 mg PO DAILY [facility] Last Admin: 01/06/25 08:32 Dose: 10 mg Benztropine Mesylate (Benztropine Mesylate 0.5 Mg Tablet) 0.5 mg PO BID [facility] Last Admin: 01/06/25 08:32 Dose: 0.5 mg Bisacodyl (Bisacodyl 5 Mg Tablet.Dr) 10 mg PO BEDTIME PRN PRN Reason: Constipation Clonidine HCl (Clonidine Hcl 0.1 Mg Tablet) 0.1 mg PO TID [facility] Last Admin: 01/06/25 08:32 Dose: 0.1 mg Docusate Sodium (Docusate Sodium 100 Mg Capsule) 100 mg PO BID PRN PRN Reason: Constipation Last Admin: 01/06/25 08:32 Dose: 100 mg Gabapentin (Gabapentin 600 Mg Tablet) 600 mg PO TID [facility] Last Admin: 01/06/25 08:32 Dose: 600 mg Haloperidol (Haloperidol 1 Mg Tablet) 4 mg PO Q4H PRN PRN Reason: severe anxiety Last Admin: 01/06/25 08:31 Dose: 4 mg Lamotrigine (Lamotrigine 100 Mg Tablet) 150 mg PO DAILY [facility] Last Admin: 01/06/25 08:32 Dose: 150 mg Magnesium Hydroxide (Milk Of Magnesia 30 Ml Oral.Susp) 30 ml PO DAILY PRN PRN Reason: Constipation Methadone HCl (Methadone Hcl 20 Mg/2 Ml Oral.Conc) 135 mg PO DAILY [facility] Last Admin: 01/06/25 07:45 Dose: 135 mg Nicotine (Nicotine 21 Mg Patch.Td24) 21 mg TRANSDERMA DAILY PRN PRN Reason: smoking cessation Last Admin: 01/06/25 08:33 Dose: 21 mg Nicotine Polacrilex (Nicotine Polacrilex 2 Mg Gum) 2 mg BUCCAL QID PRN PRN Reason: Nicotine Cravings Last Admin: 12/31/24 21:07 Dose: 2 mg Nicotine Polacrilex (Nicotine Polacrilex 2 Mg Gum) 4 mg BUCCAL Q2H PRN PRN Reason: Smoking Cessation Last Admin: 01/06/25 08:33 Dose: 4 mg Polyethylene Glycol (Polyethylene Glycol 3350 17 Gm Powd.Pack) 17 gm PO DAILY PRN PRN Reason: Constipation Last Admin: 01/03/25 08:36 Dose: 17 gm Prazosin HCl (Prazosin Hcl 1 Mg Capsule) 2 mg PO BEDTIME [facility] Last Admin: 01/05/25 20:36 Dose: 2 mg Quetiapine Fumarate (Quetiapine Fumarate 25 Mg Tablet) 25 mg PO BID PRN PRN Reason: Agitation Last Admin: 01/06/25 08:33 Dose: 25 mg Quetiapine Fumarate (Quetiapine Fumarate 50 Mg Tablet) 150 mg PO BEDTIME [facility] Last Admin: 01/05/25 20:37 Dose: 150 mg Trazodone HCl (Trazodone Hcl 100 Mg Tablet) 100 mg PO BEDTIME [facility] Last Admin: 01/05/25 20:37 Dose: 100 mg Trazodone HCl (Trazodone Hcl 50 Mg Tablet) 50 mg PO BEDTIME MRX1 PRN PRN Reason: Insomnia Venlafaxine HCl (Venlafaxine Hcl Er 150 Mg Cap.Er.24h) 150 mg PO DAILY [facility] Last Admin: 01/06/25 08:32 Dose: 150 mg Allergies Allergies Allergy/AdvReac Type Severity Reaction Status Date / Time No Known Allergies Allergy Verified 12/27/24 01:26 Assessment & Plan Assessment & Plan (1) Depression, unspecified: Status: Acute Code(s): F32.A - Depression, unspecified (2) Anxiety disorder, unspecified: Status: Acute Code(s): F41.9 - Anxiety disorder, unspecified (3) Opioid use disorder: Status: Acute Code(s): F11.90 - Opioid use, unspecified, uncomplicated Plan 12/31: Continue current tx. 01/01: Increase venlafaxine to 150 mg. Colace, Dulcolax prn 01/02/2025 Discussed option to increase Seroquel offered alternatives patient did not want to change medication also increase Lamictal. History of PTSD depression anxiety question of mixed states. Tried discussed option of Vraylar as adjunctive treatment of depression and would be helpful for mixed states. Patient did state she had found clonazepam helpful in the past do not see that was given over the past couple of years Pt is a 39-year-old female with a PMH significant for ADHD, polysubstance use disorder on methadone sober 11 months, PTSD, anxiety, and depression who was [facility] for increasing depression with SI with plan to slit her wrists. Hospitalist consult for ECT risk stratification. ECT risk stratification Patient without previous problems with anesthesia RCRI 0 points, no further cardiac workup or treatment indicated at this time EKG showing QTc WNL, no evidence of ischemic changes Hx of seizure x10-15 years ago while in detox, no formal seizure disorder diagnosis Based on stated PMH, HPI, and physical exam, there are no apparent medical contraindications to the planned procedure Hx of seizure Continue lamotrigine UTI Continue cephalexin Polysubstance use disorder Continue methadone Nicotine dependence Continue NRT Thank you for us to participate in the care of this pt. Will sign off for now. Please re-consult if any acute issue or need arises. Time Spent With Patient Time: Total time managing care of this patient today ____ minutes.
[2025-01-06] MEDS: clonazePAM 1 MG TABLET PO (12:37)
--- NOTE | 2025-01-12 10:17 | P.DS_ITS ---
DS: Providers Provider Date of admission: 12/28/24 16:35 Primary care physician: Unknown Physician Consults: 12/29/24 16:56 Consult to Hospitalist Routine Comment: Consulting Provider: [facility] Hospitalists Reason For Exam: ECT risk stratification DS: Diagnosis Discharge Diagnosis (1) Depression, unspecified: Status: Acute (2) Anxiety disorder, unspecified: Status: Acute (3) Opioid use disorder: Status: Acute DS: Medications Discharge Medications Home Medications: Home Medications ?Medication ?Instructions ?Recorded ?Confirmed benztropine 0.5 mg tablet 0.5 mg PO BID 12/27/24 12/27/24 clonidine HCl 0.1 mg tablet 0.1 mg PO TID 12/27/24 12/27/24 gabapentin 600 mg tablet 600 mg PO TID 12/27/24 12/27/24 hydroxyzine pamoate 50 mg capsule 50 mg PO TID PRN Anxiety 12/27/24 12/27/24 lamotrigine 150 mg tablet 150 mg PO DAILY 12/27/24 12/27/24 methadone 10 mg/mL oral 135 mg PO DAILY 12/27/24 12/27/24 concentrate (Methadone Intensol) nicotine 21 mg/24 hr daily 21 mg topical DAILY 12/27/24 12/27/24 transdermal patch polyethylene glycol 3350 17 17 g PO DAILY PRN Constipation 12/27/24 12/27/24 gram/dose oral powder prazosin 2 mg capsule 2 mg PO BEDTIME 12/27/24 12/27/24 quetiapine 150 mg tablet 150 mg PO BEDTIME 12/27/24 12/27/24 quetiapine 25 mg tablet 25 mg PO BID PRN Agitation 12/27/24 12/27/24 trazodone 100 mg tablet 100 mg PO BEDTIME PRN Insomnia 12/27/24 12/27/24 albuterol sulfate 90 mcg/actuation 2 puff inhalation QID 12/28/24 12/28/24 aerosol inhaler (Ventolin HFA) ketoconazole 2 % shampoo 1 appl topical DAILY PRN Itching 12/28/24 12/28/24 Previous Rx's ?Medication ?Instructions ?Recorded docusate sodium 100 mg capsule 100 mg PO BID PRN Constipation #0 01/06/25 caps haloperidol 1 mg tablet 4 mg (4 x 1 mg) PO Q4H PRN severe 01/06/25 anxiety #0 tabs nicotine (polacrilex) 2 mg gum 4 mg buccal Q2H PRN Smoking 01/06/25 Cessation #0 ea venlafaxine 150 mg 150 mg PO DAILY #0 caps 01/06/25 capsule,extended release 24 hr Data Data Completed and Pending Completed studies during hospitalization [Text1]: 12/27/24 03:07 Urine clean catch - Clean Catch Midstream Urine Culture - Final Strep agalactiae (Grp B) DS: Summary Time Spent with Patient Time attestation: Total time managing care of this patient today ____ minutes. Discharge Plan Discharge Anticipated Discharge Date/Time: 01/06/25 12:00 Patient Disposition: Xfer Inpatient Rehab Fac Discharge Diagnosis: Depression Anxiety Opiate Use Disorder Referrals: [facility] Placement: [facility] [Other] - 01/06/25 ([facility] placement for ongoing support in recovery and assistance with further referrals for substance abuse treatment ) Physician,Unknown J [Primary Care Provider] - 1 Week Discharge Medications: New nicotine (polacrilex) 2 mg Gum 4 mg buccal Q2H PRN (Reason: Smoking Cessation) Qty: 0 0RF venlafaxine 150 mg Capsule,Extended Release 24hr 150 mg PO DAILY Qty: 0 0RF haloperidol 1 mg Tablet 4 mg PO Q4H PRN (Reason: severe anxiety) Qty: 0 0RF docusate sodium 100 mg Capsule 100 mg PO BID PRN (Reason: Constipation) Qty: 0 0RF Continued methadone [Methadone Intensol] 10 mg/mL Concentrate 135 mg PO DAILY Patient Comments: Pt last dosed in the clinic on 12/22, received take 7 take home bottles. Received last dose at [facility] program yesterday morning (12/26) gabapentin 600 mg Tablet 600 mg PO TID nicotine 21 mg/24 hr Patch 24 Hour 21 mg topical DAILY clonidine HCl 0.1 mg Tablet 0.1 mg PO TID prazosin 2 mg Capsule 2 mg PO BEDTIME benztropine 0.5 mg Tablet 0.5 mg PO BID quetiapine 150 mg Tablet 150 mg PO BEDTIME lamotrigine 150 mg Tablet 150 mg PO DAILY hydroxyzine pamoate 50 mg Capsule 50 mg PO TID PRN (Reason: Anxiety) trazodone 100 mg Tablet 100 mg PO BEDTIME PRN (Reason: Insomnia) quetiapine 25 mg Tablet 25 mg PO BID PRN (Reason: Agitation) polyethylene glycol 3350 17 gram/dose Powder 17 g PO DAILY PRN (Reason: Constipation) ketoconazole 2 % Shampoo 1 appl TOPICAL DAILY PRN (Reason: Itching) albuterol sulfate [Ventolin HFA] 90 mcg/actuation Hfa Aerosol Inhaler 2 puff INHALATION QID Discontinued venlafaxine 37.5 mg Tablet Extended Release 24hr 112.5 mg PO DAILY dextroamphetamine-amphetamine [Adderall] 10 mg Tablet 10 mg PO DAILY dextroamphetamine-amphetamine [Adderall XR] 10 mg Capsule,Extended Release 24hr 10 mg PO DAILY acetaminophen [Acetaminophen Extra Strength] 500 mg Tablet 1,000 mg PO Q6H PRN (Reason: Pain) nicotine (polacrilex) 4 mg Gum 4 mg BUCCAL Q1H PRN (Reason: Smoking Cessation) Discharge Orders: Discharge Order (Routine); Ordered 01/06/25 Ordered By: Lori Garcia Diet: Advance to usual diet Activity on Discharge: As tolerated Stand Alone Forms: Patient Portal Discharge page, Community Support Print Language: Georgian Care Plan Goals: Abstinence from Substances Mood and Behavioral Stabilization Health Concerns: Abstinence from Substances Mood and Behavioral Stabilization Plan of Treatment: Admit to [facility] Assessment: Denies SI,HI,AH,VH Wanting to continue treatment at this time Discharge Date/Time: 01/06/25 14:15
== END 2025-01-06 14:15 | DRG 754 ==
LOC: HO.ED 16:17 → HO.PM5 12-28 16:49
PROVIDERS: Nurse Practitioner Family; Admitting Provider Psychiatry & Neurology Psychiatry; Emergency Provider Emergency Medicine; Visit Provider Clinical Nurse Specialist Psychiatric/Mental Health, Adult
DX: F32.A Depression, unspecified (principal); R45.851 Suicidal ideations; F41.9 Anxiety disorder, unspecified; N39.0 Urinary tract infection, site not specified; F11.20 Opioid dependence, uncomplicated; F17.210 Nicotine dependence, cigarettes, uncomplicated; Z71.6 Tobacco abuse counseling; Z59.02 Unsheltered homelessness; Z91.51 Personal history of suicidal behavior; Z91.52 Personal history of nonsuicidal self-harm; Z79.899 Other long term (current) drug therapy
CPT/HCPCS: 36415; 80053; 80061; 80307; 81001; 81025; 83036; 84443; 85025; 87086; 87147; 93005; 99285; S9485

== ENCOUNTER → 2024-12-28 09:22 | Outpatient (BNV) | payer MEDICAID, SELFPAY | PROVIDERS: Emergency Provider Emergency Medicine; Visit Provider Internal Medicine | DX: Z13.6 Encounter for screening for cardiovascular disorders (principal) | CPT/HCPCS: 93010 ==

== ENCOUNTER → 2024-12-28 16:35 | Outpatient (BNV) | payer OTHER, SELFPAY | PROVIDERS: Admitting Provider Psychiatry & Neurology Psychiatry; Emergency Provider Emergency Medicine; Visit Provider Student in an Organized Health Care Education/Training Program | DX: Z01.818 Encounter for other preprocedural examination (principal) | CPT/HCPCS: 99222 ==

== ENCOUNTER → 2024-12-28 16:35 | Outpatient (BNV) | payer OTHER, SELFPAY | PROVIDERS: Admitting Provider Psychiatry & Neurology Psychiatry; Emergency Provider Emergency Medicine; Visit Provider Psychiatry & Neurology Psychiatry | DX: F32.2 Major depressive disorder, single episode, severe without psychotic features (principal); F41.9 Anxiety disorder, unspecified; F11.90 Opioid use, unspecified, uncomplicated | CPT/HCPCS: 90792; 99231; 99232 ==

== ENCOUNTER → 2024-12-28 16:35 | Outpatient (BNV) | payer OTHER, SELFPAY | PROVIDERS: Admitting Provider Psychiatry & Neurology Psychiatry; Emergency Provider Emergency Medicine; Visit Provider Psychiatry & Neurology Psychiatry | DX: F32.2 Major depressive disorder, single episode, severe without psychotic features (principal); F41.9 Anxiety disorder, unspecified; F11.90 Opioid use, unspecified, uncomplicated | CPT/HCPCS: 99232 ==